=== PATIENT | female | born 1940 | race Caucasian/White ===

== ENCOUNTER 2025-11-07 11:09 | Inpatient (IN) | payer MEDICARE, SELFPAY ==
[2025-11-07] VITALS (57 sets, daily range): BP systolic 76–159; BP diastolic 52–111; PULSE 62–900; RESP 14–38; TEMP 36.2–36.6; O2SAT 86–95; BMI 19.7
--- NOTE | 2025-11-07 12:53 | ED_ITS ---
HPI - Fall General Date Seen: 11/07/25 Chief Complaint: Fall/Minor Trauma Stated Complaint: Fall Time Seen by Provider: 11/07/25 12:53 Source: patient and RN notes reviewed Mode of arrival: ambulatory Limitations: no limitations History of Present Illness HPI Narrative: Lakhwinder is a very pleasant 85-year-old female living in senior housing here in [place] with a history of difficulty with swallowing, tobacco use, atrial fibrillation who comes to the emergency room for evaluation regarding inability to eat and very dark urine. Patient notes that whenever she stops smoking she has a hard time eating. She states that liquids go down okay but something like noodles spaghetti or meatballs the food slides back up. She has not had endoscopy and does not want 1. No diarrhea or constipation. She has experienced approximately a 30 lb weight loss in the past year. In the past she was giving something to ?coat the esophagus? and this did help quite a bit. She notes that she got something for ulcers but that did not help. I do not have access to those records. Lakhwinder also presents with some difficulty breathing that has been ongoing since last Friday and has been persisting over the last 5 days. She describes it as a heaviness. She denies any cold-like symptoms on day 1. She notes that it is somewhat hard to breathe. This happened to her a few months ago and she said that oxygen did help. She has not been coughing nor has she had a fever. She denies urinary symptoms but notes that her urine has been somewhat dark. Also today when patient got out of the car when she was dropped off by her daughter she fell onto her knees outside. She did not fall and hit her head her ribcage or sustain any other injury. Mainly her right knee hurts. Nursing staff did help her up and into a wheelchair. She was able to bear weight. Patient's daughter is present with her. She states that she lives in [place] and that she just moved her mom [email or web address]. She does think her mom needs assisted living at this point. Past medical history: AFib currently on Coumadin Tobacco use GERD Related Data Home Medications ?Medication ?Instructions ?Recorded ?Confirmed cholecalciferol (vitamin D3) 50 50 mcg PO DAILY 11/07/25 mcg (2,000 unit) capsule cyanocobalamin (vitamin B-12) 1,000 mcg PO DAILY 11/0711/07/25 1,000 mcg tablet ezetimibe 10 mg tablet 10 mg PO DAILY 11/07/2507/25 hydrochlorothiazide 25 mg tablet 25 mg PO DAILY PRN 11/07/25 metoprolol succinate 100 mg 100 mg PO DAILY 11/07/25 1 01/08/25 tablet,extended release 24 hr (Toprol XL) omeprazole 20 mg capsule,delayed 20 mg PO DAILY 11/07/25 release warfarin 1 mg tablet 1 mg PO QPM 11/07/25 5 Allergies Allergy/AdvReac Type Severity Reaction Status Date / Time No Known Drug Allergies Allergy Verified 11/07/25 11:59 Review of Systems Status of ROS: Reports: 10 or more systems reviewed and unremarkable except as noted in History and below Const: Reports: fatigue; Denies: fever or chills Eyes: Denies: change in vision or eye discharge ENMT: Denies: throat pain, neck pain, throat swelling or nasal congestion Cardio: Reports: chest pain, palpitations, swelling of feet/ankles and shortness of breath with exertion; Denies: lightheadedness Resp: Reports: shortness of breath; Denies: cough GI: Reports: vomiting; Denies: abdominal pain, nausea, diarrhea or constipation : Denies: painful urination or urinary frequency Musculo: Reports: joint pain (Knees ); Denies: neck pain Integ/Breast: Denies: rash Neuro: Denies: headache Endo: Reports: fatigue Allergy/Immuno: Denies: throat swelling [facility] Medical History (Updated 11/08/25 @ 08:48 by Eugenia Earl MD) Moderate protein-calorie malnutrition ?E44.0 - Moderate protein-calorie malnutrition (ICD-10) Hyperlipidemia ?E78.5 - Hyperlipidemia, unspecified (ICD-10) GERD (gastroesophageal reflux disease) ?K21.9 - Gastro-esophageal reflux disease without esophagitis (ICD-10) Dysphagia ?R13.10 - Dysphagia, unspecified (ICD-10) Social History What is your current living situation?: I presently have a place to live Problems where you live: no known problems Problems where you live details: NA In the past 12 months, utilities in danger of being shut off: no In past 12 months, lack of transportation kept you from medical appts, meetings, work, or getting things needed for daily living: no In the past 12 mos, have been you worried that your food would run out before you had money to buy more?: never true In the past 12 mos, the food you bought just didn't last and you didn't have money to buy more?: never true Highest level of school completed/degree received: high school graduate Smoking Status: Former smoker Do you use any of these nicotine containing products: None Second hand tobacco smoke exposure: Yes How often do you have a drink containing alcohol: monthly or less Alcohol type: beer How many standard drinks containing alcohol do you have on a typical day: 1 or 2 How often do you have six or more drinks on one occasion: Never AUDIT-C Alcohol total score: 1 Non-prescribed substance use: denies use Caffeine: Yes (coffee) How often does anyone, including family, friends and others, physically hurt you : never How often does anyone, including family, friends and others, insult or talk down to you: never How often does anyone, including family, friends and others, threaten you with harm: never How often does anyone, including family, friends and others, scream or curse at you: never service: No Exam Narrative: Exam Narrative: Alert and oriented. Anxious. External ears eyes nose clear. Face symmetrical. Head is atraumatic normocephalic. Neck is supple. No midline cervical tenderness. Heart with an irregularly irregular rhythm and tachycardic rate. Lungs with decreased breath sounds especially in the lower lung bases but left greater than right. Abdomen is soft nontender. Pelvis stable. Lower extremities with edema. Left calf is definitely larger than the right. No calf tenderness however. Nails are yellow and long. Do not note any cellulitis. Palpation over the knees without significant tenderness. There are some light bruising rushing on the right patella. No pain over the tibial plateau. Const: Vital Signs, click to edit/add: Vital Signs - 24 hr 11/07/25 11:44 11/07/25 13:40 11/07/25 13:41 Temperature 97.9 F Pulse Rate Pulse Rate [Left P ulse Oximeter] 112 H Respiratory Rate 18 26 H 23 Blood Pressure 126/86 Blood Pressure [Le ft Upper Arm] 134/85 Pulse Oximetry 94 Oxygen Delivery Me thod Room Air 11/07/25 13:45 11/07/25 14:00 11/07/25 14:15 Temperature Pulse Rate 130 H 111 H Pulse Rate [Left P ulse Oximeter] Respiratory Rate 23 19 19 Blood Pressure Blood Pressure [Le ft Upper Arm] Pulse Oximetry 92 95 Oxygen Delivery Ny thod 11/07/25 15:16 11/07/25 15:30 11/07/25 15:45 Temperature Pulse Rate 96 Pulse Rate [Left P ulse Oximeter] Respiratory Rate 17 22 38 H Blood Pressure Blood Pressure [Le ft Upper Arm] Pulse Oximetry Oxygen Delivery Ny thod 11/07/25 16:07 11/07/25 16:09 11/07/25 16:31 Temperature Pulse Rate Pulse Rate [Left P ulse Oximeter] Respiratory Rate 23 17 14 Blood Pressure 129/83 Blood Pressure [Le ft Upper Arm] Pulse Oximetry Oxygen Delivery Ny thod 11/07/25 16:45 11/07/25 16:57 11/07/25 17:00 Temperature Pulse Rate Pulse Rate [Left P ulse Oximeter] Respiratory Rate 22 25 H 27 H Blood Pressure 159/92 H Blood Pressure [Le ft Upper Arm] Pulse Oximetry [facility] 11/07/25 17:02 Temperature Pulse Rate Pulse Rate [Left P ulse Oximeter] Respiratory Rate 26 H Blood Pressure 140/99 H Blood Pressure [Le ft Upper Arm] Pulse Oximetry [facility] Documenting provider has reviewed patient's vital signs: yes Course Course ED Course: Differential diagnosis includes but is not limited to pneumonia, UTI, AFib, esophageal stricture. Patient has multiple complaints at this time and then when she arrive she fell on her knees. I do not sense that there is a significant fracture but will obtain x-rays of both knees. She did not hit her head her ribs are sustain any other injury. Nursing staff were on site to help her into a wheelchair in she was able to get up with assistance. Will check a CBC, comprehensive, CRP, INR, urinalysis as well as EKG and chest x-ray. Will check troponin high sensitivity. Patient will have IV started. Reevaluation(s) Reevaluation #1: Patient doing well. No requirement for oxygen. She really did want to eat and so we did have her order some soup. Initial troponin min barely elevated with a high sensitivity at 13.5. She has not have any active chest pain at this time. Will recheck in 2 hours time. EKG of course shows atrial fibrillation with RVR. I occasional PVC. I do not note any of significant ST or T-wave changes. Do not feel that she is septic this time or that her AFib is physiologic and therefore do feel that we should do some Cardizem 10 mg IV to slow her heart rate down. Reevaluation #2: Initial dose of Cardizem was able to bring heart rate down between 90-115. Will give her a 2nd dose at this time followed by a drip. 2nd troponin is 11 and therefore we will rule out acute coronary syndrome at this time. Vital Signs Vital signs: Initial Vital Signs Temperature 97.9 F 11/07/25 11:44 Temperature Source Temporal Artery Scan 11/07/25 11:44 Pulse Rate 112 H 11/07/25 11:44 Pulse Rhythm Irregular 11/07/25 11:44 Respiratory Rate 18 11/07/25 11:44 Blood Pressure 134/85 11/07/25 11:44 Blood Pressure Mean 101 11/07/25 11:44 Blood Pressure Position Sitting 11/07/25 11:44 Pulse Oximetry 94 11/07/25 11:44 Oxygen Delivery Method Room Air 11/07/25 11:44 Vital Signs Temperature 97.9 F 11/07/25 11:44 Pulse Rate 112 H 11/07/25 11:44 Respiratory Rate 18 11/07/25 11:44 Blood Pressure 134/85 11/07/25 11:44 Pulse Oximetry 94 11/07/25 11:44 Oxygen Delivery Method Room Air 11/07/25 11:44 Temperature 97.6 F 11/08/25 06:00 Pulse Rate 133 H 11/08/25 07:30 Respiratory Rate 20 11/08/25 06:00 Blood Pressure 133/80 11/08/25 07:30 Pulse Oximetry 91 11/08/25 06:00 Oxygen Delivery Method Nasal Cannula 11/08/25 06:00 Oxygen Flow Rate 1 11/08/25 06:00 Medications Administered Medications: Generic Name Dose Route Start Last Admin Trade Name Freq PRN Reason Stop Dose Admin Enoxaparin Sodium 55 mg 12/08/25 21:00 11/07/25 21:46 Enoxaparin 60 Mg/0.6 Ml Inj SUBCUT Not Given Q12H SHAMA Diltiazem HCl 125 mg/ Sodium 125 mls @ 5 mls/hr 11/07/25 16:20 11/08/25 08:06 Chloride IVPB 10 mg/hr CONT SHAMA 10 mls/hr Protocol Titration 5 MG/HR Azithromycin 500 mg/ Sodium 255 mls @ 255 mls/hr 11/07/25 18:00 11/07/25 23:52 Chloride IVPB Infused Q24H SHAMA Infusion Sodium Chloride 1,000 mls @ 35 mls/hr 11/08/25 07:20 11/08/25 07:38 0.9 % Sodium Chloride 1000 Ml IV 35 mls/hr .Q24H SHAMA Administration Nystatin 500,000 unit 11/07/25 21:00 11/07/25 21:18 Nystatin 500,000 Unit/5 Ml PO Not Given QID SHAMA Pantoprazole Sodium 40 mg 11/07/25 21:00 11/07/25 21:17 Pantoprazole Sodium 40 Mg Inj IVP 40 mg DAILY SHAMA Administration Sodium Chloride 5 ml 11/07/25 21:00 11/07/25 21:17 Sodium Chloride 0.9 % (Flush) 10 Ml Syringe IVF 5 ml BID SHAMA Administration Warfarin Sodium 1 mg 11/07/25 18:00 11/07/25 18:54 Warfarin 2 Mg Tablet PO 1 mg On Hold: 11/07/25 18:56 QPM SHAMA Administration Discontinued Medications Generic Name Dose Route Start Last Admin Trade Name Freq PRN Reason Stop Dose Admin Diltiazem HCl 10 mg 11/07/25 14:34 11/07/25 15:41 Diltiazem 5 Mg/Ml Inj IVP 11/07/25 14:35 10 mg ONCE ONE Administration Diltiazem HCl 10 mg 11/07/25 16:18 11/07/25 16:53 Diltiazem 5 Mg/Ml Inj IVP 11/07/25 16:19 10 mg ONCE ONE Administration Furosemide 40 mg 11/07/25 18:06 11/07/25 18:52 Furosemide 10 Mg/Ml Inj IVP 11/07/25 18:07 40 mg ONCE ONE Administration Ceftriaxone Sodium 1 gm/ 100 mls @ 200 mls/hr 11/07/25 14:34 11/07/25 16:12 Sodium Chloride IVPB 11/07/25 14:35 Infused ONCE ONE Infusion Magnesium Sulfate 2 gm in 50 mls @ 25 mls/hr 11/07/25 18:09 11/07/25 23:53 Magnesium Iv IVPB 11/07/25 20:08 Infused ONCE ONE Infusion Sodium Chloride 1,000 mls @ 100 mls/hr 11/07/25 18:50 11/07/25 23:52 0.9 % Sodium Chloride 1000 Ml IV Infused .Q10H SHAMA Infusion Sodium Chloride 250 mls @ 250 mls/hr 11/07/25 20:39 11/07/25 23:52 0.9 % Sodium Chloride 250 Ml IV 11/07/25 21:38 Infused .Q1H ONE Infusion Ondansetron HCl 4 mg 11/07/25 17:33 11/07/25 20:30 Ondansetron 2 Mg/Ml Inj IVP 4 mg Q4H PRN Administration Nausea Pantoprazole Sodium 40 mg 11/07/25 19:10 11/07/25 23:53 Pantoprazole Sodium 40 Mg Inj IVP Not Given DAILY SHAMA MDM - Fall MDM Narrative Medical decision making narrative: 1. Pneumonia-right sided. O2 sats have remained in the mid 90s. I do suspect patient has underlying emphysema. Have not seen any records from her previous hospitals. No O2 needs at this time. Rocephin 1 g IV is given. No evidence of sepsis . Note no traumatic injury of the chest upon the fall outside today. 2. AFib with RVR-rate control usually with metoprolol 100 b.i.d.. Certainly this could be secondary to pneumonia and recent fall. Cardizem 10 mg IV x1. This bridge bring heart rate down from 1 30s to 90-115. Giving 2nd dose in starting a drip at this time. ProBNP elevated, I suspect component of this is secondary to atrial fibrillation. 3. Elevated troponin-initial troponin 13.5 (normal up to 13 in women:. Second troponin recheck in 2 hours 11. Therefore no evidence of acute coronary syndrome. EKG with nonspecific changes noted. 4. Lower extremity edema with a symmetrical calves-petrous on of the lower extremities without any evidence of DVT. In addition patient is anticoagulated with an INR of 2.8 5. Weakness -likely multifactorial with recent weight loss/difficulty eating because of dysphagia, pneumonia as well as AFib. Likely would benefit from OT evaluation of ADLs. Patient currently a resident at [facility] or [facility]. I do think she would benefit from assisted living as her daughter who is here quite a few times a week lives in [place]. 6. Dysphagia-will need to get records from previous institutions. Patient notes that she is unable to swallow when she stops smoking. Likely will need endoscopy to further evaluate. No vomiting here in the ED. able to take fluids without difficulty. 7. Disposition- admit inpatient under the care of YANETH Emanuel, hospitalist. Additional diagnosis: Fall-patient fell onto her knees. She did not strike her head ribcage for her back. X-rays are reassuring with no evidence of fracture. She has a small amount of bruising on her right knee. Lower extremity Doppler negative for DVT. Medical Records Medical records narrative: Attempting to obtain Lab Data Attestation: I reviewed the patient's lab results. Labs: Lab Results 11/07/25 11/07/25 11/07/25 Range/Units 13:11 13:14 13:57 WBC 9.69 (4.50-11.00) K/uL RBC 4.54 (4.00-5.20) m/uL Hgb 14.3 (12.0-16.0) gm/dL Hct 44.0 (33.0-51.0) % MCV 97 (80-100) fL MCH 32 (26-34) pg MCHC 33 (32-36) gm/dL RDW Coeff of Camilla 16.7 H (11.5-15.5) % Plt Count 268 (140-440) K/uL Neut % (Auto) 82.9 H (42.0-72.0) % Lymph % (Auto) 7.5 L (20-44) % [place] % (Auto) 9.0 (0.0-11.0) % Eos % (Auto) 0.2 (0.0-7.0) % Baso % (Auto) 0.1 (0.0-3.0) % Neut # (Auto) 8.00 H (1.7-7.0) K/uL Lymph # (Auto) 0.70 L (0.90-2.90) K/uL [place] # (Auto) 0.90 (0.00-0.90) K/UL Eos # (Auto) 0.02 (0.00-0.50) K/uL Baso # (Auto) 0.01 (0.00-0.30) K/uL Abs Immat Gran (auto) 0.03 (0.00-0.30) K/uL Imm/Tot Granulo (auto) 0.3 % INR 2.82 H (0.91-1.10) VBG pH 7.432 H (7.32-7.43) VBG pCO2 50 (40-50) mmHG VBG pO2 < 30.1 (25-47) mmHG VBG HCO3 34 H (21-28) mmol/L Sodium 143 (135-149) mmol/L Potassium 3.6 (3.6-5.1) mmol/L Chloride 97 (96-114) mmol/L Carbon Dioxide 33 H (20-32) mmol/L Anion Gap 13 (7-15) mEq/L BUN 15 (7-30) mg/dL Creatinine 0.9 (0.5-1.5) mg/dL Estimated GFR 63 ml/min Glucose 124 H (60-115) mg/dL Lactate 1.6 (0.5-1.9) mmol/L Calcium 8.5 (8.4-10.6) mg/dL Magnesium 1.6 (1.5-2.6) mg/dL Total Bilirubin 3.6 H (0.1-1.5) mg/dL AST 28 (12-35) U/L ALT 15 (4-35) U/L Alkaline Phosphatase 65 (40-150) U/L POC Troponin I High Sensi 13.5 H* (2.9-13.0) pg/mL C-Reactive Protein 3.8 H (0.5-1.0) mg/dL NT-Pro-B Natriuret Pep 69780 H (See Note) pg/mL Total Protein 7.0 (6.0-8.3) g/dL Albumin 4.0 (3.3-5.0) g/dL Procalcitonin 0.05 (<0.50) ng/mL Urine Color [place] A (Yellow) Urine Appearance Turbid A (Clear) Urine pH 5.5 (5.0-8.5) Ur Specific [place] >= 1.030 (1.000-1.030) Urine Protein 3+ A (Negative) Urine Glucose (UA) Negative (Negative) Urine Ketones Negative (Negative) Urine Blood 1+ A (Negative) Urine Nitrite Negative (Negative) Urine Bilirubin 2+ A (Negative) Urine Urobilinogen 1.0 (0.2-1.0) Ur Leukocyte Esterase Negative (Negative) Urine RBC 0-2 (0-2) Urine WBC 5-10 A (0-5) Ur Squamous Epith Cells Moderate A (None-Few) Calcium Oxalate Crystal Moderate A (None) Urine Bacteria Few A (None) Fine Granular Casts Moderate A (None) Lab Acknowledgement Test Added 11/07/25 11/07/25 Range/Units 15:15 16:44 WBC (4.50-11.00) K/uL RBC (4.00-5.20) m/uL Hgb (12.0-16.0) gm/dL Hct (33.0-51.0) % MCV (80-100) fL MCH (26-34) pg MCHC (32-36) gm/dL RDW Coeff of Camilla (11.5-15.5) % Plt Count (140-440) K/uL Neut % (Auto) (42.0-72.0) % Lymph % (Auto) (20-44) % [place] % (Auto) (0.0-11.0) % Eos % (Auto) (0.0-7.0) % Baso % (Auto) (0.0-3.0) % Neut # (Auto) (1.7-7.0) K/uL Lymph # (Auto) (0.90-2.90) K/uL [place] # (Auto) (0.00-0.90) K/UL Eos # (Auto) (0.00-0.50) K/uL Baso # (Auto) (0.00-0.30) K/uL Abs Immat Gran (auto) (0.00-0.30) K/uL Imm/Tot Granulo (auto) % INR (0.91-1.10) VBG pH (7.32-7.43) VBG pCO2 (40-50) mmHG VBG pO2 (25-47) mmHG VBG HCO3 (21-28) mmol/L Sodium (135-149) mmol/L Potassium (3.6-5.1) mmol/L Chloride (96-114) mmol/L Carbon Dioxide (20-32) mmol/L Anion Gap (7-15) mEq/L BUN (7-30) mg/dL Creatinine (0.5-1.5) mg/dL Estimated GFR ml/min Glucose (60-115) mg/dL Lactate (0.5-1.9) mmol/L Calcium (8.4-10.6) mg/dL Magnesium (1.5-2.6) mg/dL Total Bilirubin (0.1-1.5) mg/dL AST (12-35) U/L ALT (4-35) U/L Alkaline Phosphatase (40-150) U/L POC Troponin I High Sensi 11.6 (2.9-13.0) pg/mL C-Reactive Protein (0.5-1.0) mg/dL NT-Pro-B Natriuret Pep (See Note) pg/mL Total Protein (6.0-8.3) g/dL Albumin (3.3-5.0) g/dL Procalcitonin (<0.50) ng/mL Urine Color (Yellow) Urine Appearance (Clear) Urine pH (5.0-8.5) Ur Specific [place] (1.000-1.030) Urine Protein (Negative) Urine Glucose (UA) (Negative) Urine Ketones (Negative) Urine Blood (Negative) Urine Nitrite (Negative) Urine Bilirubin (Negative) Urine Urobilinogen (0.2-1.0) Ur Leukocyte Esterase (Negative) Urine RBC (0-2) Urine WBC (0-5) Ur Squamous Epith Cells (None-Few) Calcium Oxalate Crystal (None) Urine Bacteria (None) Fine Granular Casts (None) Lab Acknowledgement Test Added Imaging Data Chest x-ray: Attestation: I have reviewed the pertinent imaging results. My impression: Right lower lobe pneumonia by my read. Radiologist's impression: TUBES AND LINES: None. HEART AND MEDIASTINUM: Enlarged heart. LUNGS AND PLEURAL SPACES: Dense consolidation at the right base and right effusion. It is unclear whether this is related to the patient`s trauma or predated the patient`s trauma.No pneumothorax. Left lung and left pleural space appear normal OSSEOUS STRUCTURES: Age-appropriate appearance. No acute focal finding. IMPRESSION: 1. Enlarged heart. 2. Dense consolidation at the right base and small right effusion. It is unclear whether the right basilar finding predated the trauma or is a result of the trauma. No pneumothorax 3. The left lung and left pleural space appear normal Knee x-rays: Attestation: I have reviewed the pertinent imaging results. My impression: I do not note any acute fractures. Radiologist's impression: Soft tissue swelling over the lateral aspect of the right knee. No joint effusion or fracture. 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 Otherwise unremarkable. IMPRESSION: 1. Soft tissue swelling over the lateral aspect of the right knee. No other acute abnormality evident. 2. 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 Venous US: Attestation: I have reviewed the pertinent imaging results. Radiologist's impression: Deep veins: The bilateral common femoral, superficial femoral, deep femoral, popliteal, and posterior tibial veins are fully compressible and patent. Superficial veins: Greater saphenous vein is fully compressible. No popliteal cyst. Other: There is subcutaneous edema in the soft tissues of the bilateral lower extremities below the knee. IMPRESSION: : 1. No evidence of DVT within the visualized veins of the bilateral lower extremities. 2. There is subcutaneous edema in the soft tissues of the bilateral lower extremities below the knee. ECG Data Attestation: I personally reviewed and interpreted this ECG as follows: ECG interpretation date: 11/07/25 Prior ECG tracings: not available for review Interpretation: Atrial fibrillation with RVR at a rate of 134. Questionable old septal infarct. Occasional PVC. Otherwise no acute ST or T-wave changes. Critical Care Time Critical Care Time Critical Care Time: Yes Attestation: The patient required my highest level preparedness to intervene emergently and I personally spent this critical care time directly and personally managing the patient. This critical care time included: Obtaining a history; Examining the patient; Pulse oximetry; Ordering and reviewing of studies; Arranging urgent treatment with development of a management plan; Evaluation of patients response to treatment; Frequent reassessment discussions with other providers. This critical care time was performed to assess and manage the high probability of imminent life-threatening deterioration that could result in multiorgan failure. It was exclusive of separate billable procedures and treating other patients and teaching time. Total Critical Care Time in Minutes: 60 Discharge Plan Discharge Clinical Impression: Atrial fibrillation with rapid ventricular response, Pneumonia, Atypical chest pain, Elevated brain natriuretic peptide (BNP) level, Bilateral edema of lower extremity, Weakness Patient Disposition: Admitted As Inpatient Condition: Improved Procedures ABG Interpretation ABG Results: 11/07/25 13:57 VBG pH 7.432 H VBG pCO2 50 VBG pO2 < 30.1 VBG HCO3 34 H
--- NOTE | 2025-11-07 13:11 | CRLHL7_ITS ---
For Patients: As a result of the Century Cures Act, medical imaging exams and procedure reports are released immediately into your electronic medical record. You may view this report before your referring provider. If you have questions, please contact your health care provider. INDICATION: Injury COMPARISON: None TECHNIQUE: Single view study FINDINGS: TUBES AND LINES: None. HEART AND MEDIASTINUM: Enlarged heart. LUNGS AND PLEURAL SPACES: Dense consolidation at the right base and right effusion. It is unclear whether this is related to the patient`s trauma or predated the patient`s trauma.No pneumothorax. Left lung and left pleural space appear normal OSSEOUS STRUCTURES: Age-appropriate appearance. No acute focal finding. IMPRESSION: 1. Enlarged heart. 2. Dense consolidation at the right base and small right effusion. It is unclear whether the right basilar finding predated the trauma or is a result of the trauma. No pneumothorax 3. The left lung and left pleural space appear normal Dictated by Mehul Adair MD @ 11/07/2025 2:16:59 PM (Electronically Signed)
--- NOTE | 2025-11-07 13:13 | US_ITS ---
Patient: JERSEY WEST Facility:?[facility] Patient ID:?[id number] Site Patient ID:?[id number]. Site :?[id number] Study:?US-Extremity Bilateral LEV-11/07/2025 3:12:21 PM Ordering Physician:?Nabeel Brooks Final Report: INDICATION: Lower extremity edema, left greater than right TECHNIQUE: Ultrasound venous duplex bilateral lower extremity. Compression venous exam was performed using travis-scale, color Doppler, and spectral Doppler analysis. COMPARISON: None. FINDINGS: Deep veins: The bilateral common femoral, superficial femoral, deep femoral, popliteal, and posterior tibial veins are fully compressible and patent. Superficial veins: Greater saphenous vein is fully compressible. No popliteal cyst. Other: There is subcutaneous edema in the soft tissues of the bilateral lower extremities below the knee. IMPRESSION: : 1. No evidence of DVT within the visualized veins of the bilateral lower extremities. 2. There is subcutaneous edema in the soft tissues of the bilateral lower extremities below the knee. Dictated by Erick Ochoa MD @ 11/07/2025 3:15:30 PM Signed by:?Erick Ochoa MD @11/07/2025 3:15:30 PM (Electronic Signature)
--- NOTE | 2025-11-07 13:14 | CRLHL7_ITS ---
For Patients: As a result of the Century Cures Act, medical imaging exams and procedure reports are released immediately into your electronic medical record. You may view this report before your referring provider. If you have questions, please contact your health care provider. INDICATION: Right knee pain post fall TECHNIQUE: Portable AP image of both knees as well as cross-table lateral views of the right knee COMPARISON: None FINDINGS: Soft tissue swelling over the lateral aspect of the right knee. No joint effusion or fracture. 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 Otherwise unremarkable. IMPRESSION: 1. Soft tissue swelling over the lateral aspect of the right knee. No other acute abnormality evident. 2. 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 Dictated by Jean Maurer MD @ 11/07/2025 2:11:38 PM (Electronically Signed)
[2025-11-07 14:03] LABS: Lactate* 1.6 mmol/L (0.5-1.9)
[2025-11-07 14:06] LABS: Hematocrit* 44.0 % (33.0-51.0); Hemoglobin* 14.3 gm/dL (12.0-16.0); Immature Granulocytes Abs Auto 0.03 K/uL (0.00-0.30); Immature Granulocytes Pct Auto 0.3 %; Mean Corpuscular HGB Conc 33 gm/dL (32-36); Mean Corpuscular Hemoglobin 32 pg (26-34); Mean Corpuscular Volume 97 fL (80-100); RDW Coefficient of Variation % 16.7 % (11.5-15.5); Red Blood Count* 4.54 m/uL (4.00-5.20); White Blood Count* 9.69 K/uL (4.50-11.00)
[2025-11-07 14:07] LABS: Lymphocytes Absolute Auto 0.70 K/uL (0.90-2.90)
[2025-11-07 14:08] LABS: Slide Review Reflex No
[2025-11-07 14:15] LABS: Albumin* 4.0 g/dL (3.3-5.0); Chloride* 97 mmol/L (96-114); Potassium* 3.6 mmol/L (3.6-5.1); Sodium* 143 mmol/L (135-149)
[2025-11-07 14:17] LABS: INR 2.82 (0.91-1.10); Prothrombin Time 30.9 Seconds
[2025-11-07 14:18] LABS: Alanine Aminotransferase* 15 U/L (4-35); Alkaline Phosphatase* 65 U/L (40-150); Anion Gap 13 mEq/L (7-15); Aspartate Amino Transferase* 28 U/L (12-35); Bilirubin Total* 3.6 mg/dL (0.1-1.5); Blood Urea Nitrogen* 15 mg/dL (7-30); Carbon Dioxide* 33 mmol/L (20-32); Creatinine* 0.9 mg/dL (0.5-1.5); Estimated Glomerular Filt Rate 63 ml/min
[2025-11-07 14:19] LABS: Calcium* 8.5 mg/dL (8.4-10.6); Glucose* 124 mg/dL (60-115); Total Protein* 7.0 g/dL (6.0-8.3)
[2025-11-07 14:31] LABS: NT Pro B Type NatriureticPept* 10400 pg/mL (See Note)
[2025-11-07] MEDS: dilTIAZem 5 MG/ML inj 10 MG IVP ×2 (15:41→16:53)
[2025-11-07] MEDS: cefTRIAXone 1 GM in 0.9 % SODIUM CHLORIDE Mini-bag 100 ML IVPB (15:42)
[2025-11-07 16:16] LABS: Appearance Urine Turbid (Clear)
[2025-11-07 16:46] LABS: PCO2 VBG 50 mmHG (40-50); pH VBG 7.432 (7.32-7.43)
[2025-11-07 16:47] LABS: HCO3 VBG 34 mmol/L (21-28); PO2 VBG < 30.1 mmHG (25-47)
[2025-11-07] MEDS: dilTIAZem HCL 125 MG in 0.9 % SODIUM CHLORIDE 100 ml 100 ML IVPB (16:49)
--- NOTE | 2025-11-07 18:10 | PM.IMHP1 ---
Assessment and Plan Assessment and plan (1) Pneumonia: Problem comment: -suspect aspiration pneumonia in setting of acute worsened dysphagia -CXR shows dense consolidation at the right base. Consider further imaging if new or worsening symptoms -continue ceftriaxone, add azithromycin -no hypoxia, VBG pH 7.432, pCO2 50, PO2 < 30, HC03 34, CRP 3.8, procalcitonin 0.05 -incentive spirometry, aerobika Status: Acute (2) Dysphagia: Problem comment: -acute on chronic, intermittent worsening episodes -reports no previous workup -NPO, gentle IVF while diuresing. Failed bedside swallow eval. Hold oral meds -[employer] for evaluation Status: Acute (3) Atrial fibrillation with rapid ventricular response: Problem comment: -home meds include metoprolol 100 mg p.o. daily, warfarin (holding for dysphagia) -INR 2.8 -continue diltiazem drip -enoxaparin as currently NPO, resuming warfarin as soon as able Status: Acute (4) Bilateral edema of lower extremity: Problem comment: -acute on chronic, acutely worsened -HCTZ prn, reports not helping past few days -BNP > 10,000 -bilateral lower extremity Doppler ultrasound negative for DVT -IV Lasix ordered -ECHO ordered Status: Acute (5) Weakness: Problem comment: -generalized, unknown if acute on chronic -PT/OT consults -sr. social media & mobile manager for discharge planning/placement needs Status: Acute (6) Fall: Problem comment: -reported outside of ED -right knee x-ray without acute injury -monitor for new or worsening symptoms -PT/OT Status: Acute (7) Thrush: Problem comment: -possible thrush, soft palate -nystatin swish and spit Status: Acute (8) Hyperlipidemia: Problem comment: -holding ezetimibe (dysphagia) Status: Acute Plan Continue diltiazem drip for AFib RVR. Continue IV antibiotics, gentle IVF while NPO, while also diuresing. Swallow study 11/08 Total Time Spent Total Time Spent: Today I spent 90 minutes seeing the patient, reviewing Expanse and EPIC notes/diagnostics, discussing the care plan with our care time that includes social work, PT/OT, pharmacy, RT, nursing home and documenting my impressions and plan in the medical record. Acuity is characterized as high and reflected in: AFib with RVR requiring IV diltiazem drip, cardiac monitoring, diuresis in setting of peripheral edema This patient will require hospital services as outlined in the assessment and plan in order to stabilize and be safely discharged to a lower level of care. Because of the risk and acuity as described above, this patient cannot be managed at a lower level of care. Hospitalist- H&P: HPI History of Present Illness Date Seen: 11/07/25 Chief complaint: Fall Narrative: Lakhwinder Oscar is a 85 year old female past medical history significant for atrial fibrillation on beta-quinton and chronic anticoagulation, GERD, hyperlipidemia is admitted to critical care from the ED for further management atrial fibrillation with RVR and dysphagia. Patient is seen with nurse at bedside. Daughter is not present. Reports dysphagia since quitting smoking 4 years ago. Has slowly been worsening over the years, more so over the last week again. Intermittent episodes similar to this in the past where she admits choking on foods, which she has done in the past few days. She tells me that eating meats is intolerable. She otherwise slowly chews fruits and vegetables. Reports no vomiting. She denies ever having had a swallow study in the past. Denies having an EGD in the past and tells me she prefers not to have one if she needs one either. When asked if she is having any chest pain or heaviness she tells me no. She is able to tell when her AFib has worsened. More short of breath. Overall, complains of generalized weakness. Denies ear pain, sore throat, nasal congestion. She denies a new or worsening cough. Has a chronic phlegmy cough otherwise. Denies recent fevers. Denies abdominal pain, vomiting, diarrhea. Has a normal bowel movement daily. Denies headache or dizziness. Patient fell outside the hospital on arrival to the ED. Had some right knee pain, x-ray shows no acute injury. No other reported pains currently. Reports taking her medications daily as prescribed. Has not missed a dose or choked on a dose. Patient recently moved from [facility] and has previously signed an [facility] to get her records here. She currently resides at [facility]. Her daughter lives in [place] and helps her out throughout the week. Quit smoking 4 years ago. Occasional alcohol use. Requests be a full code. Review of Systems Narrative: REVIEW OF SYSTEMS: Complete review of systems performed and negative unless otherwise stated in HPI or below. Medical Decision Making Medical Decision Making Code Status: Full code [facility] Medical History (Updated 11/07/25 @ 19:06 by Pili Emanuel PA-C) Hyperlipidemia ?E78.5 - Hyperlipidemia, unspecified (ICD-10) GERD (gastroesophageal reflux disease) ?K21.9 - Gastro-esophageal reflux disease without esophagitis (ICD-10) Dysphagia ?R13.10 - Dysphagia, unspecified (ICD-10) Social History What is your current living situation?: I presently have a place to live Problems where you live: no known problems Problems where you live details: NA In the past 12 months, utilities in danger of being shut off: no In past 12 months, lack of transportation kept you from medical appts, meetings, work, or getting things needed for daily living: no In the past 12 mos, have been you worried that your food would run out before you had money to buy more?: never true In the past 12 mos, the food you bought just didn't last and you didn't have money to buy more?: never true Highest level of school completed/degree received: high school graduate Smoking Status: Former smoker Do you use any of these nicotine containing products: None Second hand tobacco smoke exposure: Yes How often do you have a drink containing alcohol: monthly or less Alcohol type: beer How many standard drinks containing alcohol do you have on a typical day: 1 or 2 How often do you have six or more drinks on one occasion: Never AUDIT-C Alcohol total score: 1 Non-prescribed substance use: denies use Caffeine: Yes (coffee) How often does anyone, including family, friends and others, physically hurt you: never How often does anyone, including family, friends and others, insult or talk down to you: never How often does anyone, including family, friends and others, threaten you with harm: never How often does anyone, including family, friends and others, scream or curse at you: never service: No Meds Home Medications and Allergies Home Medications ?Medication ?Instructions ?Recorded ?Confirmed ?Type cholecalciferol (vitamin D3) 50 50 mcg PO DAILY 11/07/25 11/07/25 History mcg (2,000 unit) capsule cyanocobalamin (vitamin B-12) 1,000 mcg PO DAILY 11/07/25 11/07/25 History 1,000 mcg tablet ezetimibe 10 mg tablet 10 mg PO DAILY 11/07/25 11/07/25 History hydrochlorothiazide 25 mg tablet 25 mg PO DAILY PRN 11/07/25 11/07/25 History metoprolol succinate 100 mg 100 mg PO DAILY 11/07/25 11/07/25 History tablet,extended release 24 hr (Toprol XL) omeprazole 20 mg capsule,delayed 20 mg PO DAILY 11/07/25 11/07/25 History release warfarin 1 mg tablet 1 mg PO QPM 11/07/25 11/07/25 History Allergies Allergy/AdvReac Type Severity Reaction Status Date / Time No Known Drug Allergies Allergy Verified 11/07/25 11:59 Exam Narrative: Exam Narrative: PHYSICAL EXAM General: Appears thin, frail, conversant, NAD HEENT: Normocephalic, atraumatic, sclera white, EOMI, soft palate mildly erythematous with white patches Cardiovascular: IRRR. Bilateral+3 pitting edema Pulmonary: Diminished breath sounds throughout, no expiratory wheezes, mild dyspnea on room air Abdominal: Soft, nondistended, NTTP Neurological: Alert, answering questions appropriately, mildly anxious, cranial nerves intact, no focal findings Extremities: Bilateral pitting edema lower extremities, feet to shins, mild erythema. Neurovascularly intact Skin: Warm, dry. Const: Vital Signs, click to edit/add: Vital Signs - 24 hr 11/07/25 11:44 11/07/25 13:40 11/07/25 13:41 Temperature 97.9 F Pulse Rate Pulse Rate [Left P ulse Oximeter] 112 H Respiratory Rate 18 26 H 23 Blood Pressure 126/86 Blood Pressure [Le ft Upper Arm] 134/85 Pulse Oximetry 94 Oxygen Delivery Me thod Room Air 11/07/25 13:45 11/07/25 14:00 11/07/25 14:15 Temperature Pulse Rate 130 H 111 H Pulse Rate [Left P ulse Oximeter] Respiratory Rate 23 19 19 Blood Pressure Blood Pressure [Le ft Upper Arm] Pulse Oximetry 92 95 Oxygen Delivery Me thod 11/07/25 15:16 11/07/25 15:30 11/07/25 15:45 Temperature Pulse Rate 96 Pulse Rate [Left P ulse Oximeter] Respiratory Rate 17 22 38 H Blood Pressure Blood Pressure [Le ft Upper Arm] Pulse Oximetry Oxygen Delivery Dc thod 11/07/25 16:07 11/07/25 16:09 11/07/25 16:31 Temperature Pulse Rate Pulse Rate [Left P ulse Oximeter] Respiratory Rate 23 17 14 Blood Pressure 129/83 Blood Pressure [Le ft Upper Arm] [facility]xim[facility] 16:45 11/07/25 16:57 11/07/25 17:00 Temperature Pulse Rate Pulse Rate [Left P ulse Oximeter] Respiratory Rate 22 25 H 27 H Blood Pressure 159/92 H Blood Pressure [Le ft Upper Arm] Pulse Oximetry [facility]/07/25 17:02 Temperature Pulse Rate Pulse Rate [Left P ulse Oximeter] Respiratory Rate 26 H Blood Pressure 140/99 H Blood Pressure [Le ft Upper Arm] Pulse Oximetry [facility] - H&P: Result Labs Labs: Short CBC 11/07/25 Range/Units 13:57 WBC 9.69 (4.50-11.00) K/uL Hgb 14.3 (12.0-16.0) gm/dL Hct 44.0 (33.0-51.0) % Plt Count 268 (140-440) K/uL BMP 11/07/25 13:57 Sodium 143 Potassium 3.6 Chloride 97 Carbon Dioxide 33 H BUN 15 Creatinine 0.9 Glucose 124 H Calcium 8.5 Liver Function 11/07/25 Range/Units 13:57 Total Bilirubin 3.6 H (0.1-1.5) mg/dL AST 28 (12-35) U/L ALT 15 (4-35) U/L Alkaline Phosphatase 65 (40-150) U/L Albumin 4.0 (3.3-5.0) g/dL Urine 11/07/25 Range/Units 13:11 Urine Color Weld A (Yellow) Urine Appearance Turbid A (Clear) Urine pH 5.5 (5.0-8.5) Ur Specific [place] >= 1.030 (1.000-1.030) Urine Protein 3+ A (Negative) Urine Glucose (UA) Negative (Negative) Imaging Chest x-ray: Attestation: I have reviewed the pertinent imaging results. Radiologist's impression: TUBES AND LINES: None. HEART AND MEDIASTINUM: Enlarged heart. LUNGS AND PLEURAL SPACES: Dense consolidation at the right base and right effusion. It is unclear whether this is related to the patient`s trauma or predated the patient`s trauma.No pneumothorax. Left lung and left pleural space appear normal OSSEOUS STRUCTURES: Age-appropriate appearance. No acute focal finding. IMPRESSION: 1. Enlarged heart. 2. Dense consolidation at the right base and small right effusion. It is unclear whether the right basilar finding predated the trauma or is a result of the trauma. No pneumothorax 3. The left lung and left pleural space appear normal Venous US: Attestation: I have reviewed the pertinent imaging results. Radiologist's impression: Deep veins: The bilateral common femoral, superficial femoral, deep femoral, popliteal, and posterior tibial veins are fully compressible and patent. Superficial veins: Greater saphenous vein is fully compressible. No popliteal cyst. Other: There is subcutaneous edema in the soft tissues of the bilateral lower extremities below the knee. IMPRESSION: : 1. No evidence of DVT within the visualized veins of the bilateral lower extremities. 2. There is subcutaneous edema in the soft tissues of the bilateral lower extremities below the knee. Right knee x-ray: Attestation: I have reviewed the pertinent imaging results. Radiologist's impression: FINDINGS: Soft tissue swelling over the lateral aspect of the right knee. No joint effusion or fracture. 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 Otherwise unremarkable. IMPRESSION: 1. Soft tissue swelling over the lateral aspect of the right knee. No other acute abnormality evident. 2. 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
[2025-11-07 18:12] LABS: Procalcitonin* 0.05 ng/mL (<0.50)
[2025-11-07] MEDS: AZITHROMYCIN 500 MG in 0.9 % SODIUM CHLORIDE 250 ml 250 ML 255 MG IVPB (18:46)
[2025-11-07] MEDS: MAGNESIUM IV 2 GM/50 ML PIGGYBACK IVPB (18:48)
[2025-11-07] MEDS: FUROSEMIDE 10 MG/ML inj 40 MG IVP (18:52)
[2025-11-07] MEDS: WARFARIN 2 MG TABLET 1 MG PO (18:54)
--- NOTE | 2025-11-07 20:05 | PC.NURSE ---
Nursing Care Hours: [id number] Pt this shift calm and talkative. Denies nausea, chest pain, or SOB. VS monitored while on Dilt drip. Cooperative with cares. Pt was verbally upset aeb raising voice and refusing to comply with NPO status while speech swallow study is pending for tomorrow. Pt reports I am hungry, I will get up out of bed and go get food. Nurse performed bedside swallow test with thin liquids and moderately thick liquids and pt coughed with both and had garbled voice afterwards. Same with one small bite of mashed potatoes. Pt then states enough, I am done and was agreeable to NPO until evaluation. Pt states she does not want a scope evaluation however. White patches and swollen tonsils upon assessment, denies throat pain.
[2025-11-07] MEDS: ONDANSETRON 2 MG/ML inj 4 MG IVP (20:30)
[2025-11-07] MEDS: 0.9 % SODIUM CHLORIDE 250 ml 250 ML IV (20:30)
[2025-11-07] MEDS: PANTOPRAZOLE SODIUM 40 MG INJ IVP (21:17)
[2025-11-07] MEDS: SODIUM CHLORIDE 0.9 % (FLUSH) 10 ML SYRINGE 5 ML IVF (21:17)
[2025-11-08] VITALS (71 sets, daily range): BP systolic 58–139; BP diastolic 22–124; PULSE 74–180; RESP 16–24; TEMP 36–36.4; O2SAT 89–98; BMI 19.7
[2025-11-08 00:54] LABS: PCR FLU A Negative PCR FLU A (Negative); PCR FLU B Negative PCR FLU B (Negative); PCR RSV Negative PCR RSV (Negative); SARS PCR* Negative SARS-CoV-2 (Negative)
[2025-11-08 06:26] LABS: HCO3 VBG 35 mmol/L (21-28); PO2 VBG < 30.1 mmHG (25-47); pH VBG 7.370 (7.32-7.43)
[2025-11-08 06:27] LABS: Hematocrit* 42.3 % (33.0-51.0); Hemoglobin* 13.6 gm/dL (12.0-16.0); Mean Corpuscular HGB Conc 32 gm/dL (32-36); Mean Corpuscular Hemoglobin 32 pg (26-34); Mean Corpuscular Volume 98 fL (80-100); Red Blood Count* 4.31 m/uL (4.00-5.20); White Blood Count* 7.55 K/uL (4.50-11.00)
[2025-11-08 06:28] LABS: PCO2 VBG 61 mmHG (40-50)
[2025-11-08 06:29] LABS: Slide Review Reflex No
[2025-11-08 06:44] LABS: Albumin* 3.8 g/dL (3.3-5.0); Chloride* 96 mmol/L (96-114); Potassium* 3.7 mmol/L (3.6-5.1); Sodium* 142 mmol/L (135-149)
[2025-11-08 06:46] LABS: Blood Urea Nitrogen* 14 mg/dL (7-30); Creatinine* 0.8 mg/dL (0.5-1.5); Est. Creatinine Clearance* 36.70; Estimated Glomerular Filt Rate 73 ml/min
[2025-11-08 06:47] LABS: Alanine Aminotransferase* 19 U/L (4-35); Alkaline Phosphatase* 55 U/L (40-150); Anion Gap 13 mEq/L (7-15); Aspartate Amino Transferase* 39 U/L (12-35); Bilirubin Direct* 0.8 mg/dL (0.0-0.5); Bilirubin Total* 2.7 mg/dL (0.1-1.5); Calcium* 7.8 mg/dL (8.4-10.6); Carbon Dioxide* 33 mmol/L (20-32); Glucose* 109 mg/dL (60-115); Total Protein* 6.6 g/dL (6.0-8.3)
[2025-11-08 06:52] LABS: INR 3.45 (0.91-1.10); Prothrombin Time 36.0 Seconds
--- NOTE | 2025-11-08 07:21 | PC.NURSE ---
Pt alert and oriented to self and place with some forgetfulness of time. Afebrile. Pt denies pain, chest pain, and SOB. Around 1999 pt was up to the commode and reported feeling nauseous and light headed, took bp 76/53 stopped diltiazem drip, updated PA Joseluis, orders given to give 250 bolus, pt blood pressures improved, gave PRN Zofran for nausea with relief. Pt was placed back on diltiazem drip around 2219. Pt continues to be on diltiazem drip at 5 mg tolerating well. Pt is up A1 with walker and gait belt voiding, and tolerating an NPO diet.
--- NOTE | 2025-11-08 08:36 | PM.IMPN1 ---
Assessment and Plan Assessment and plan (1) Pneumonia: Problem comment: - suspect aspiration pneumonia in setting of acutely worsened dysphagia - CXR: dense consolidation at the right base - Ceftriaxone and Azithromycin (11/08) - requiring low dose supplemental oxygen, RT referral Status: Acute (2) Atrial fibrillation with rapid ventricular response: Problem comment: - home meds include metoprolol 100mg XR daily, warfarin (holding for dysphagia) - INR 2.8 (up to 3.45 on 11/08), pharmacy following - continue diltiazem drip until HR <100 and able to restart po medications - enoxaparin as currently NPO, resuming warfarin as soon as able Status: Acute (3) Dysphagia: Problem comment: -acute on chronic, intermittent worsening episodes -reports no previous workup, on daily PPI (continue this) -NPO as failed bedside swallow evaluation with RN. Holding oral meds until STEWARD/STEWARDESS BATH evaluation Status: Acute (4) Bilateral edema of lower extremity: Problem comment: -acute on chronic, currently worse than baseline without relief from home prn HCTZ -concern for HFrEF; BNP > 10,000, BLE Doppler ultrasound negative for DVT. TTE ordered -IV Lasix ordered BID Status: Acute (5) Erythema of skin: Problem comment: - LLE, noted 11/08, per patient this is baseline. Monitor closely for s/sx of infectious cellulitis Status: Acute (6) Elevated LFTs: Problem comment: - bilirubin 3.6 -> 2.7, direct bilirubin 0.8, AST 39 and ALT 15 - unclear baseline - no concerning ETOH use, possibly congestive hepatopathy Status: Acute (7) Fall: Problem comment: -reported outside of ED on 11/07 -right knee x-ray without acute injury -monitor for new or worsening symptoms -PT/OT Status: Acute (8) Weakness: Problem comment: -generalized, unknown if acute on chronic -PT/OT consults -social work program coordinator for discharge planning/placement needs Status: Acute (9) Moderate protein-calorie malnutrition: Problem comment: - as evidenced by a reported 30 pound weight loss in the past year, BMI of 19, difficulty with po intake Status: Acute (10) Hyperlipidemia: Problem comment: - on Ezetimibe as an outpatient Status: Acute Plan - per above (await TTE results, continue to diurese, follow HR, advance diet per STEWARD/STEWARDESS BATH results) - continue Diltiazem gtt until able to safely take pills - attempted to call daughter Gianna with an update, no answer Subjective Date Seen: 11/08/25 Interval history: Lakhwinder was admitted to the hospital on 11/07 for a R sided PNA with concern for aspiration and a fib with RVR. Presented to the ER with acute on chronic weakness and difficulty swallowing, concern for aspiration. Diltiazem gtt initiated in ER, Ceftriaxone and Azithromycin started for PNA. Evidence of CHF exacerbation (LE edema worse than baseline, BNP >10k), started on IV Furosemide BID. Failed bedside swallow with nursing staff, STEWARD/STEWARDESS BATH evaluation ordered. This morning, Lakhwinder feels hungry. She is also tired, has not yet tried getting up from bed. Therapies have been ordered. No CP, no dyspnea at rest. HR 120-130s overnight, Diltiazem drip increased this morning with improvement to 90-100s. TTE ordered. Exam Narrative: Exam Narrative: GEN: Alert and awake, sitting comfortably in bed HEENT: EOMIs bilaterally, no scleral icterus CV: Irregular rhythm, rate 100s during my exam R: No wheezing, mild bibasilar rales R>L Ext: 3+ pitting bilateral lower extremity Skin: There is shiny erythema noted of LLE over ortiz, no open skin noted. Mild warmth, no ttp. Patient states this is baseline Neuro: No focal deficits on limited exam Psych: Appears to have mild cognitive impairment, no agitation Const: Vital Signs, click to edit/add: Vital Signs - 24 hr 11/07/25 11:44 11/07/25 13:40 11/07/25 13:41 Temperature 97.9 F Pulse Rate Pulse Rate [Left P ulse Oximeter] 112 H Respiratory Rate 18 26 H 23 Blood Pressure 126/86 Blood Pressure [Le ft Arm] Blood Pressure [Le ft Upper Arm] 134/85 Blood Pressure [Ri ght Arm] Pulse Oximetry 94 Oxygen Delivery Me thod Room Air Oxygen Flow Rate 11/07/25 13:45 11/07/25 14:00 11/07/25 14:15 Temperature Pulse Rate 130 H 111 H Pulse Rate [Left P ulse Oximeter] Respiratory Rate 23 19 19 Blood Pressure Blood Pressure [Le ft Arm] Blood Pressure [Le ft Upper Arm] Blood Pressure [Ri ght Arm] Pulse Oximetry 92 95 Oxygen Delivery Me thod Oxygen Flow Rate 11/07/25 15:16 11/07/25 15:30 11/07/25 15:45 Temperature Pulse Rate 96 Pulse Rate [Left P ulse Oximeter] Respiratory Rate 17 22 38 H Blood Pressure Blood Pressure [Le ft Arm] Blood Pressure [Le ft Upper Arm] Blood Pressure [Ri ght Arm] Pulse Oximetry Oxygen Delivery Me thod Oxygen Flow Rate 11/07/25 16:07 11/07/25 16:09 11/07/25 16:31 Temperature Pulse Rate Pulse Rate [Left P ulse Oximeter] Respiratory Rate 23 17 14 Blood Pressure 129/83 Blood Pressure [Le ft Arm] Blood Pressure [Le ft Upper Arm] Blood Pressure [Ri ght Arm] Pulse Oximetry Oxygen Delivery Me thod Oxygen Flow Rate 11/07/25 16:45 11/07/25 16:57 11/07/25 17:00 Temperature Pulse Rate Pulse Rate [Left P ulse Oximeter] Respiratory Rate 22 25 H 27 H Blood Pressure 159/92 H Blood Pressure [Le ft Arm] Blood Pressure [Le ft Upper Arm] Blood Pressure [Ri ght Arm] Pulse Oximetry Oxygen Delivery Me thod Oxygen Flow Rate 11/07/25 17:02 11/07/25 17:29 11/07/25 17:29 Temperature 97.4 F L Pulse Rate Pulse Rate [Left P ulse Oximeter] 84 Respiratory Rate 26 H 20 Blood Pressure 140/99 H Blood Pressure [Le ft Arm] 137/87 Blood Pressure [Le ft Upper Arm] Blood Pressure [Ri ght Arm] Pulse Oximetry 93 Oxygen Delivery Me thod Room Air Room Air Oxygen Flow Rate 11/07/25 17:30 11/07/25 17:33 11/07/25 17:45 Temperature 97.5 F L Pulse Rate 104 H Pulse Rate [Left P ulse Oximeter] 95 88 Respiratory Rate Blood Pressure Blood Pressure [Le ft Arm] 147/110 H 148/107 H Blood Pressure [Le ft Upper Arm] Blood Pressure [Ri ght Arm] Pulse Oximetry 86 L 90 Oxygen Delivery Me thod Room Air Oxygen Flow Rate 11/07/25 18:00 11/07/25 18:15 11/07/25 18:30 Temperature Pulse Rate Pulse Rate [Left P ulse Oximeter] 95 110 H Respiratory Rate 18 Blood Pressure Blood Pressure [Le ft Arm] 149/111 H 148/104 H Blood Pressure [Le ft Upper Arm] Blood Pressure [Ri ght Arm] Pulse Oximetry 94 94 88 Oxygen Delivery Me thod Room Air Room Air Room Air Oxygen Flow Rate 11/07/25 18:45 11/07/25 19:00 11/07/25 19:00 Temperature 97.6 F Pulse Rate 113 H Pulse Rate [Left P ulse Oximeter] 97 116 H Respiratory Rate 20 Blood Pressure Blood Pressure [Le ft Arm] 123/92 H Blood Pressure [Le ft Upper Arm] Blood Pressure [Ri ght Arm] 137/87 Pulse Oximetry 94 94 Oxygen Delivery Me thod Room Air Room Air Oxygen Flow Rate 11/07/25 19:15 11/07/25 19:30 11/07/25 19:30 Temperature Pulse Rate Pulse Rate [Left P ulse Oximeter] 103 H 103 H 90 Respiratory Rate 18 Blood Pressure Blood Pressure [Le ft Arm] Blood Pressure [Le ft Upper Arm] Blood Pressure [Ri ght Arm] 134/90 H 118/86 Pulse Oximetry Oxygen Delivery Me thod Oxygen Flow Rate 11/07/25 19:57 11/07/25 20:00 11/07/25 20:05 Temperature 97.5 F L Pulse Rate Pulse Rate [Left P ulse Oximeter] 92 95 80 Respiratory Rate 20 Blood Pressure Blood Pressure [Le ft Arm] Blood Pressure [Le ft Upper Arm] Blood Pressure [Ri ght Arm] 76/53 L 82/52 L 88/59 L Pulse Oximetry 88 Oxygen Delivery Me thod Room Air Oxygen Flow Rate 11/07/25 20:10 11/07/25 20:15 11/07/25 20:20 Temperature Pulse Rate Pulse Rate [Left P ulse Oximeter] 84 86 85 Respiratory Rate Blood Pressure Blood Pressure [Le ft Arm] Blood Pressure [Le ft Upper Arm] Blood Pressure [Ri ght Arm] 95/70 92/60 95/65 Pulse Oximetry Oxygen Delivery Me thod Oxygen Flow Rate 11/07/25 20:25 11/07/25 20:30 11/07/25 20:35 Temperature Pulse Rate Pulse Rate [Left P ulse Oximeter] 81 77 71 Respiratory Rate 18 Blood Pressure Blood Pressure [Le ft Arm] Blood Pressure [Le ft Upper Arm] Blood Pressure [Ri ght Arm] 86/61 L 94/54 L 82/53 L Pulse Oximetry 91 Oxygen Delivery Me thod Room Air Oxygen Flow Rate 11/07/25 20:37 11/07/25 20:40 11/07/25 20:45 Temperature Pulse Rate Pulse Rate [Left P ulse Oximeter] 63 81 900 H Respiratory Rate Blood Pressure Blood Pressure [Le ft Arm] Blood Pressure [Le ft Upper Arm] Blood Pressure [Ri ght Arm] 87/58 L 82/60 L 94/52 L Pulse Oximetry Oxygen Delivery Me thod Oxygen Flow Rate 11/07/25 20:50 11/07/25 20:55 11/07/25 21:00 Temperature Pulse Rate Pulse Rate [Left P ulse Oximeter] 77 62 68 Respiratory Rate Blood Pressure Blood Pressure [Le ft Arm] Blood Pressure [Le ft Upper Arm] Blood Pressure [Ri ght Arm] 91/60 92/59 L 93/60 Pulse Oximetry Oxygen Delivery Me thod Oxygen Flow Rate 11/07/25 21:05 11/07/25 21:10 11/07/25 21:15 Temperature Pulse Rate Pulse Rate [Left P ulse Oximeter] 67 64 74 Respiratory Rate Blood Pressure Blood Pressure [Le ft Arm] Blood Pressure [Le ft Upper Arm] Blood Pressure [Ri ght Arm] 101/57 L 103/64 118/75 Pulse Oximetry Oxygen Delivery Me thod Oxygen Flow Rate 11/07/25 21:30 11/07/25 21:45 11/07/25 22:00 Temperature Pulse Rate Pulse Rate [Left P ulse Oximeter] 72 76 111 H Respiratory Rate Blood Pressure Blood Pressure [Le ft Arm] Blood Pressure [Le ft Upper Arm] Blood Pressure [Ri ght Arm] 101/80 124/90 H 118/66 Pulse Oximetry Oxygen Delivery Me thod Oxygen Flow Rate 11/07/25 22:18 11/07/25 22:30 11/07/25 22:42 Temperature 97.2 F L Pulse Rate 109 H Pulse Rate [Left P ulse Oximeter] 124 H 108 H Respiratory Rate 18 Blood Pressure Blood Pressure [Le ft Arm] Blood Pressure [Le ft Upper Arm] Blood Pressure [Ri ght Arm] 115/67 123/67 Pulse Oximetry 91 Oxygen Delivery Me thod Room Air Oxygen Flow Rate 11/07/25 22:45 11/07/25 23:00 11/07/25 23:00 Temperature Pulse Rate Pulse Rate [Left P ulse Oximeter] 108 H 87 87 Respiratory Rate 16 Blood Pressure Blood Pressure [Le ft Arm] Blood Pressure [Le ft Upper Arm] Blood Pressure [Ri ght Arm] 126/65 115/74 Pulse Oximetry Oxygen Delivery Me thod Oxygen Flow Rate 11/07/25 23:15 11/07/25 23:30 11/07/25 23:37 Temperature Pulse Rate Pulse Rate [Left P ulse Oximeter] 116 H 90 92 Respiratory Rate Blood Pressure Blood Pressure [Le ft Arm] Blood Pressure [Le ft Upper Arm] Blood Pressure [Ri ght Arm] 123/89 95/72 118/80 Pulse Oximetry Oxygen Delivery Me thod Oxygen Flow Rate 11/07/25 23:45 11/08/25 00:00 11/08/25 00:15 Temperature Pulse Rate Pulse Rate [Left P ulse Oximeter] 116 H 104 H 110 H Respiratory Rate Blood Pressure Blood Pressure [Le ft Arm] Blood Pressure [Le ft Upper Arm] Blood Pressure [Ri ght Arm] 122/78 121/84 125/104 H Pulse Oximetry 90 Oxygen Delivery Me thod Room Air Oxygen Flow Rate 11/08/25 00:30 11/08/25 00:54 11/08/25 01:00 Temperature 97.1 F L Pulse Rate Pulse Rate [Left P ulse Oximeter] 97 109 H 95 Respiratory Rate 16 Blood Pressure Blood Pressure [Le ft Arm] Blood Pressure [Le ft Upper Arm] Blood Pressure [Ri ght Arm] 119/82 90/59 L 122/82 Pulse Oximetry 90 90 Oxygen Delivery Me thod Room Air Nasal Cannula Oxygen Flow Rate 1 11/08/25 01:15 11/08/25 01:30 11/08/25 01:45 Temperature Pulse Rate Pulse Rate [Left P ulse Oximeter] 109 H 99 91 Respiratory Rate Blood Pressure Blood Pressure [Le ft Arm] Blood Pressure [Le ft Upper Arm] Blood Pressure [Ri ght Arm] 119/74 121/98 H 129/80 Pulse Oximetry 92 94 Oxygen Delivery Me thod Nasal Cannula Nasal Cannula Oxygen Flow Rate 1 11/08/25 02:00 11/08/25 02:15 11/08/25 02:30 Temperature Pulse Rate Pulse Rate [Left P ulse Oximeter] 91 109 H 90 Respiratory Rate Blood Pressure Blood Pressure [Le ft Arm] Blood Pressure [Le ft Upper Arm] Blood Pressure [Ri ght Arm] 123/86 119/71 126/90 H Pulse Oximetry Oxygen Delivery Me thod Oxygen Flow Rate 11/08/25 02:45 11/08/25 02:58 11/08/25 03:00 Temperature 97.5 F L Pulse Rate 92 Pulse Rate [Left P ulse Oximeter] 99 114 H Respiratory Rate 18 Blood Pressure Blood Pressure [Le ft Arm] Blood Pressure [Le ft Upper Arm] Blood Pressure [Ri ght Arm] 122/74 124/89 Pulse Oximetry 90 Oxygen Delivery Me thod Room Air Oxygen Flow Rate 11/08/25 03:00 11/08/25 03:15 11/08/25 03:30 Temperature Pulse Rate Pulse Rate [Left P ulse Oximeter] 114 H 95 97 Respiratory Rate 18 Blood Pressure Blood Pressure [Le ft Arm] Blood Pressure [Le ft Upper Arm] Blood Pressure [Ri ght Arm] 131/64 121/85 Pulse Oximetry Oxygen Delivery Me thod Oxygen Flow Rate 11/08/25 04:00 11/08/25 04:15 11/08/25 04:30 Temperature Pulse Rate Pulse Rate [Left P ulse Oximeter] 90 99 89 Respiratory Rate Blood Pressure Blood Pressure [Le ft Arm] Blood Pressure [Le ft Upper Arm] Blood Pressure [Ri ght Arm] 108/81 118/79 126/87 Pulse Oximetry Oxygen Delivery Me thod Oxygen Flow Rate 11/08/25 04:45 11/08/25 04:45 11/08/25 05:00 Temperature Pulse Rate Pulse Rate [Left P ulse Oximeter] 111 H 114 H 94 Respiratory Rate Blood Pressure Blood Pressure [Le ft Arm] Blood Pressure [Le ft Upper Arm] Blood Pressure [Ri ght Arm] 118/70 129/77 138/87 Pulse Oximetry Oxygen Delivery Me thod Oxygen Flow Rate 11/08/25 05:00 11/08/25 05:15 11/08/25 05:30 Temperature Pulse Rate Pulse Rate [Left P ulse Oximeter] 94 74 106 H Respiratory Rate Blood Pressure Blood Pressure [Le ft Arm] Blood Pressure [Le ft Upper Arm] Blood Pressure [Ri ght Arm] 129/74 136/95 H Pulse Oximetry Oxygen Delivery Me thod Oxygen Flow Rate 11/08/25 05:45 11/08/25 06:00 11/08/25 06:15 Temperature 97.6 F Pulse Rate Pulse Rate [Left P ulse Oximeter] 118 H 113 H 104 H Respiratory Rate 20 Blood Pressure Blood Pressure [Le ft Arm] Blood Pressure [Le ft Upper Arm] Blood Pressure [Ri ght Arm] 112/74 127/82 129/97 H Pulse Oximetry 91 Oxygen Delivery Me thod Nasal Cannula Oxygen Flow Rate 1 11/08/25 06:30 11/08/25 06:45 11/08/25 07:00 Temperature Pulse Rate Pulse Rate [Left P ulse Oximeter] 133 H 120 H 116 H Respiratory Rate Blood Pressure Blood Pressure [Le ft Arm] Blood Pressure [Le ft Upper Arm] Blood Pressure [Ri ght Arm] 105/72 121/97 H 129/89 Pulse Oximetry Oxygen Delivery Me thod Oxygen Flow Rate 11/08/25 07:15 11/08/25 07:30 Temperature Pulse Rate Pulse Rate [Left P ulse Oximeter] 109 H 133 H Respiratory Rate Blood Pressure Blood Pressure [Le ft Arm] Blood Pressure [Le ft Upper Arm] Blood Pressure [Ri ght Arm] 101/78 133/80 Pulse Oximetry Oxygen Delivery Me thod Oxygen Flow Rate Labs Labs: Laboratory Results - last 24 hr 11/07/25 11/07/25 11/07/25 13:11 13:14 13:57 WBC 9.69 RBC 4.54 Hgb 14.3 Hct 44.0 MCV 97 MCH 32 MCHC 33 RDW Coeff of Camilla 16.7 H Plt Count 268 Neut % (Auto) 82.9 H Lymph % (Auto) 7.5 L [place] % (Auto) 9.0 Eos % (Auto) 0.2 Baso % (Auto) 0.1 Neut # (Auto) 8.00 H Lymph # (Auto) 0.70 L [place] # (Auto) 0.90 Eos # (Auto) 0.02 Baso # (Auto) 0.01 Abs Immat Gran (auto) 0.03 Imm/Tot Granulo (auto) 0.3 INR 2.82 H VBG pH 7.432 H VBG pCO2 50 VBG pO2 < 30.1 VBG HCO3 34 H Sodium 143 Potassium 3.6 Chloride 97 Carbon Dioxide 33 H Anion Gap 13 BUN 15 Creatinine 0.9 Estimated Creat Clear Estimated GFR 63 Glucose 124 H Lactate 1.6 Calcium 8.5 Magnesium 1.6 Total Bilirubin 3.6 H Direct Bilirubin AST 28 ALT 15 Alkaline Phosphatase 65 POC Troponin I High Sensi 13.5 H* C-Reactive Protein 3.8 H NT-Pro-B Natriuret Pep 33825 H Total Protein 7.0 Albumin 4.0 Procalcitonin 0.05 Urine Color Weir A Urine Appearance Turbid A Urine pH 5.5 Ur Specific [place] >= 1.030 Urine Protein 3+ A Urine Glucose (UA) Negative Urine Ketones Negative Urine Blood 1+ A Urine Nitrite Negative Urine Bilirubin 2+ A Urine Urobilinogen 1.0 Ur Leukocyte Esterase Negative Urine RBC 0-2 Urine WBC 5-10 A Ur Squamous Epith Cells Moderate A Calcium Oxalate Crystal Moderate A Urine Bacteria Few A Fine Granular Casts Moderate A SARS-CoV-2 (PCR) Influenza Type A (PCR) Influenza Type B (PCR) RSV (PCR) Lab Acknowledgement Test Added 11/07/25 11/07/25 11/08/25 15:15 16:44 00:00 WBC RBC Hgb Hct MCV MCH MCHC RDW Coeff of Camilla Plt Count Neut % (Auto) Lymph % (Auto) [place] % (Auto) Eos % (Auto) Baso % (Auto) Neut # (Auto) Lymph # (Auto) [place] # (Auto) Eos # (Auto) Baso # (Auto) Abs Immat Gran (auto) Imm/Tot Granulo (auto) INR VBG pH VBG pCO2 VBG pO2 VBG HCO3 Sodium Potassium Chloride Carbon Dioxide Anion Gap BUN Creatinine Estimated Creat Clear Estimated GFR Glucose Lactate Calcium Magnesium Total Bilirubin Direct Bilirubin AST ALT Alkaline Phosphatase POC Troponin I High Sensi 11.6 C-Reactive Protein NT-Pro-B Natriuret Pep Total Protein Albumin Procalcitonin Urine Color Urine Appearance Urine pH Ur Specific [place] Urine Protein Urine Glucose (UA) Urine Ketones Urine Blood Urine Nitrite Urine Bilirubin Urine Urobilinogen Ur Leukocyte Esterase Urine RBC Urine WBC Ur Squamous Epith Cells Calcium Oxalate Crystal Urine Bacteria Fine Granular Casts SARS-CoV-2 (PCR) Negative SARS-CoV-2 Influenza Type A (PCR) Negative PCR FLU A Influenza Type B (PCR) Negative PCR FLU B RSV (PCR) Negative PCR RSV Lab Acknowledgement Test Added 11/08/25 05:46 WBC 7.55 RBC 4.31 Hgb 13.6 Hct 42.3 MCV 98 MCH 32 MCHC 32 RDW Coeff of [place] Plt Count 252 Neut % (Auto) Lymph % (Auto) [place] % (Auto) Eos % (Auto) Baso % (Auto) Neut # (Auto) Lymph # (Auto) [place] # (Auto) Eos # (Auto) Baso # (Auto) Abs Immat Gran (auto) Imm/Tot Granulo (auto) INR 3.45 H VBG pH 7.370 VBG pCO2 61 H* VBG pO2 < 30.1 VBG HCO3 35 H Sodium 142 Potassium 3.7 Chloride 96 Carbon Dioxide 33 H Anion Gap 13 BUN 14 Creatinine 0.8 Estimated Creat Clear 36.70 Estimated GFR 73 Glucose 109 Lactate Calcium 7.8 L Magnesium Total Bilirubin 2.7 H Direct Bilirubin 0.8 H AST 39 H ALT 19 Alkaline Phosphatase 55 POC Troponin I High Sensi C-Reactive Protein 4.5 H NT-Pro-B Natriuret Pep Total Protein 6.6 Albumin 3.8 Procalcitonin Urine Color Urine Appearance Urine pH Ur Specific [place] Urine Protein Urine Glucose (UA) Urine Ketones Urine Blood Urine Nitrite Urine Bilirubin Urine Urobilinogen Ur Leukocyte Esterase Urine RBC Urine WBC Ur Squamous Epith Cells Calcium Oxalate Crystal Urine Bacteria Fine Granular Casts SARS-CoV-2 (PCR) Influenza Type A (PCR) Influenza Type B (PCR) RSV (PCR) Lab Acknowledgement
[2025-11-08] MEDS: SODIUM CHLORIDE 0.9 % (FLUSH) 10 ML SYRINGE 5 ML IVF (09:12)
[2025-11-08] MEDS: PANTOPRAZOLE SODIUM 40 MG INJ IVP (09:13)
[2025-11-08] MEDS: cefTRIAXone 1 GM in 0.9 % SODIUM CHLORIDE Mini-bag 100 ML IVPB (09:13)
[2025-11-08] MEDS: NYSTATIN 500,000 UNIT/5 ML 500000 UNIT PO ×3 (09:24→17:33)
[2025-11-08] MEDS: ENOXAPARIN 60 MG/0.6 ML INJ 55 MG SUBCUT (09:24)
--- NOTE | 2025-11-08 10:15 | W.PC.NUTR.HO ---
Hospital Nutrition Assessment Patient Data Patient Gender: Female Patient Age: 85 Height: 167.64 cm (5 ft 6in) Weight: 55.508 kg (122 lb 6 oz) Body Mass Index: 19.7 Usual Body Weight: 68.039 kg (150 lb) Weight Calculations [place] Body Weight (lbs): 130.00 [place] Body Weight (kg): 58.97 Percent of [place] Body Weight: 94 Adjusted Body Weight (lbs): 128.09 Adjusted Body Weight (kg): 58.10 Percent of Usual Body Weight: 82 Basal Energy Expenditure (BEE): 1103.27 Basal Energy Expenditure (BEE) Adjusted Weight: 1128.06 Activity/Stress Factors Injury Factor/Activity Factor Value: 1.2 Total Energy Requirements Kcal requirements (current wt): 1323.924 Kcal requirements (adj wt): 1353.672 Protein Need (current wt): 1.0 Total Protein (current wt): 55.508 Protein Need (adj wt): 1.0 Total Protein (adj wt): 58.100 Fluid Need (current wt): 30 Total Fluid (current wt): 1665.240 Fluid Need (adj wt): 30 Total Fluid (adj wt): 1743.00 Nutrition Assessment Diet Order: NPO (Needs Speech Evaluation d/t swallowing difficulty) Allergies: NKFA Appetite Prior to Admission: Poor Appetite and Intake: Has had decreased intake recently due to dysphagia Hx Appetite Changes: Yes Hx Weight Loss: Yes (Per MD report, 30 lbs wt loss w/in last year; significant loss @ 20%) Hx Weight Gain: No Nausea: No Vomiting: No Diarrhea: No Hx Constipation: No Chewing Difficulty: No Swallowing Difficulty: Yes (NPO currently - Speech Eval ordered. ) Diagnosis/Symptom or Procedure: Pneumonia, A.Fib. w/ RVR Clinical History: Active Problems Elevated LFTs (Acute) R79.89 Moderate protein-calorie malnutrition (Acute) E44.0 Fall (Acute) W19.XXXA Hyperlipidemia (Acute) E78.5 GERD (gastroesophageal reflux disease) (Acute) K21.9 Thrush (Acute) B37.0 Dysphagia (Acute) R13.10 Weakness (Acute) R53.1 Bilateral edema of lower extremity (Acute) R60.0 Pneumonia (Acute) J18.9 Atrial fibrillation with rapid ventricular response (Acute) I48.91 Current Living Situation: Recently moved to [facility] to be closer to her daughter. Medications Medications: reviewed. Lab Results Lab Results: reviewed. Assessment/Plan PES Statement: Unintentional significant weight loss related to inadequate oral intakes in setting of swallowing difficulties as evidenced by weight loss of about 30 lbs in 1 year, 20% loss. Nutritional Assessment Summary: RDN with nutrition screen related to weight loss within 1 year with swallowing difficulties. Per MD report, patient has lost about 30 lbs within 1 year which is significant weight loss at about 20%. Patient reports having difficulty swallowing certain foods. Per ER note, pt reports liquids are ok but spaghetti and meatballs were difficult. Speech Evaulation ordered. Patient is currently NPO. I suspect patient is at nutrition risk with significant weight loss within the last year in the setting a swallowing difficulty. Discharge Plan-Living Situation: TBD Goals: Advance diet order to at least full liquids per Speech Therapy recommendations. Plan/Recommendation: Diet order per MD order and Speech Therapy recommendations. Current diet order is NPO. No nutrition interventions at this time to due to needing Speech Eval and NPO. RDN will continue to monitor and follow-up prn/when appropriate. Malnutrition Assessment Current Energy Intake: Less Than 75% Estimated Timeframe Of Energy Intake: Greater Than Or Equal To 3 Months Weight Changes: 20% In 12 Months Recommended Malnutrition Diagnosis: Moderate Protein-Calorie Malnutrition and Further Physical Evaluation Required By MD To Determine In The Context: Chronic Illness Based On: Weight Loss and Inadequate Energy Intakes
[2025-11-08] MEDS: METOPROLOL SUCCINATE (XL) 100 MG TAB PO (10:54)
[2025-11-08] MEDS: dilTIAZem HCL 125 MG in 0.9 % SODIUM CHLORIDE 100 ml 100 ML 10 MG IVPB (12:45)
[2025-11-08 15:20] LABS: Potassium* 3.0 mmol/L (3.6-5.1)
--- NOTE | 2025-11-08 15:43 | PC.SOCIAL ---
Discharge planning: sheet metal layout worker met with the pt this afternoon an explained that there is a chance that the pt will be recommended to go to a TCU for short-term rehab after the hospital and she said that she would not go to one and that she didn't need to go. sheet metal layout worker plans to check-in with the pt tomorrow. Social work to follow-up as needed.
[2025-11-08] MEDS: POTASSIUM BICARB 25 MEQ EFFERVESCENT TAB PO (16:16)
[2025-11-08] MEDS: AZITHROMYCIN 500 MG in 0.9 % SODIUM CHLORIDE 250 ml 250 ML 255 MG IVPB (17:35)
[2025-11-08] MEDS: EPINEPHrine 0.1 MG/ML SYRINGE 1 MG IVP (18:29)
--- NOTE | 2025-11-08 18:55 | CRLHL7_ITS ---
For Patients: As a result of the Century Cures Act, medical imaging exams and procedure reports are released immediately into your electronic medical record. You may view this report before your referring provider. If you have questions, please contact your health care provider. INDICATION: Unresponsive TECHNIQUE: Chest radiograph 1 view COMPARISON: 11/07/2025 FINDINGS: Mediastinum: The central pulmonary arteries are enlarged and likely due to pulmonary hypertension. Moderate, stable cardiomegaly is noted. Lung: Mild patchy airspace opacities are present in the right lung base noted with small right pleural effusion, unchanged from prior exam. Bone and Soft tissue: Unremarkable for age. Skin folds are seen over the upper ady thoraces bilaterally. IMPRESSIONS: 1. Mild patchy airspace opacities are present in the right lung base noted with small right pleural effusion, unchanged from prior exam. 2. Moderate, stable cardiomegaly is noted. 3. The central pulmonary arteries are enlarged and likely due to pulmonary hypertension. Dictated by Buddy Wagoner MD @ 11/08/2025 7:12:53 PM Dictated by: Buddy Wagoner MD @ 11/08/2025 19:13:01 (Electronically Signed)
[2025-11-08 19:00] LABS: Hematocrit* 46.3 % (33.0-51.0); Hemoglobin* 14.6 gm/dL (12.0-16.0); Immature Granulocytes Abs Auto 0.10 K/uL (0.00-0.30); Immature Granulocytes Pct Auto 1.1 %; Lymphocytes Absolute Auto 2.39 K/uL (0.90-2.90); Mean Corpuscular HGB Conc 32 gm/dL (32-36); Mean Corpuscular Hemoglobin 32 pg (26-34); Mean Corpuscular Volume 100 fL (80-100); RDW Coefficient of Variation % 17.0 % (11.5-15.5); Red Blood Count* 4.64 m/uL (4.00-5.20); White Blood Count* 9.14 K/uL (4.50-11.00)
[2025-11-08 19:01] LABS: Slide Review Reflex No
--- NOTE | 2025-11-08 19:01 | CRLHL7_ITS ---
For Patients: As a result of the Century Cures Act, medical imaging exams and procedure reports are released immediately into your electronic medical record. You may view this report before your referring provider. If you have questions, please contact your health care provider. INDICATION: Altered mental status. Unresponsive post code. TECHNIQUE: CT head without contrast. COMPARISON: None. FINDINGS: CSF spaces: Moderate diffuse parenchymal volume loss Brain parenchyma and extra-axial spaces: Moderate chronic white matter ischemic disease. The travis-white differentiation is normal. No sign of mass, hemorrhage, or midline shift. No extra-axial fluid collection. Skull base and calvarium: The visualized paranasal sinuses and mastoid air cells demonstrate no acute or significant findings. The visualized orbits are grossly unremarkable. No skull fractures. IMPRESSION: No acute intracranial abnormality on this noncontrast study. Please note that all CT scans at this facility use dose modulation, iterative reconstruction, and/or weight-based dosing when appropriate to reduce radiation dose to as low as reasonably achievable. Dictated by Chidi Collier MD @ 11/08/2025 9:06:39 PM (Electronically Signed)
--- NOTE | 2025-11-08 19:01 | CRLHL7_ITS ---
For Patients: As a result of the Century Cures Act, medical imaging exams and procedure reports are released immediately into your electronic medical record. You may view this report before your referring provider. If you have questions, please contact your health care provider. INDICATION: Unresponsive post code. TECHNIQUE: CT chest acquired with 75 cc Omnipaque 350 IV contrast. COMPARISON: None. FINDINGS: Heart and vasculature: No sign of central pulmonary embolism. Evaluation of the segmental and subsegmental branches is limited secondary to motion artifact. Cardiomegaly. Thoracic aorta and pulmonary artery are normal in caliber. Lungs and pleura: Peribronchial thickening with right middle/lower lobe, and left basilar consolidations. Moderate right and trace left pleural effusions. No pneumothorax. Lymph nodes/mediastinum: No mediastinal, hilar, or axillary adenopathy. Chest wall: No masses. Upper abdomen: No acute or significant findings. Bones: Unremarkable for age. IMPRESSION: Peribronchial thickening with right middle/lower lobe and left basilar consolidations, likely aspiration pneumonitis/pneumonia. Moderate right and trace left pleural effusions. No central pulmonary embolism. Evaluation of the segmental and subsegmental branches is limited secondary to motion artifact. Otherwise, no acute intrathoracic abnormality. Please note that all CT scans at this facility use dose modulation, iterative reconstruction, and/or weight-based dosing when appropriate to reduce radiation dose to as low as reasonably achievable. Dictated by Chidi Collier MD @ 11/08/2025 9:18:57 PM (Electronically Signed)
[2025-11-08] MEDS: ONDANSETRON 2 MG/ML inj 4 MG IVP (19:07)
[2025-11-08 19:14] LABS: Albumin* 3.8 g/dL (3.3-5.0); Chloride* 97 mmol/L (96-114); Potassium* 3.0 mmol/L (3.6-5.1); Sodium* 143 mmol/L (135-149)
--- NOTE | 2025-11-08 19:15 | ED.GENADULT ---
HPI - General Adult General Time Seen by Provider: 19:16 Date Seen: 11/08/25 Chief complaint: Altered Mental Status Stated complaint: Code Blue Time Seen by Provider: 11/07/25 12:53 Source: patient and RN notes reviewed Mode of arrival: ambulatory Limitations: no limitations History of Present Illness HPI narrative: I responded to code blue. Patient was eating dinner, became unresponsive, hypotensive. On my initial arrival, patient was lying flat, palpable pulse although blood pressures trended downward, oxygen saturation 95% but patient with poor respiratory effort and agonal respirations. Bag-valve mask was initiated, reported initial difficulty bagging which improved. Patient ceased respiratory efforts and lost pulses. Chest compressions were initiated, epinephrine was given with Rosc after 1 round. Planned to intubate patient she started moving and finding the bag, trying to pull straps off of the Cheikh. Bag-valve mask was stopped and patient was awake alert, able to answer questions. Said she felt awful. Oxygen saturation 100% on 2 L. Because patient was awake alert, oxygenating well, protecting her airway, decision to defer intubation. Patient initially was in atrial fibrillation with RVR after resuscitative efforts which proceeded to rate controlled atrial fibrillation. Critical care time 20 minutes Related Data Home Medications ?Medication ?Instructions ?Recorded ?Confirmed cholecalciferol (vitamin D3) 50 50 mcg PO DAILY 11/07/25 11/07/25 mcg (2,000 unit) capsule cyanocobalamin (vitamin B-12) 1,000 mcg PO DAILY 11/07/25 11/07/25 1,000 mcg tablet ezetimibe 10 mg tablet 10 mg PO DAILY 11/07/25 11/07/25 hydrochlorothiazide 25 mg tablet 25 mg PO DAILY PRN 11/07/25 11/07/25 metoprolol succinate 100 mg 100 mg PO DAILY 11/07/25 11/07/25 tablet,extended release 24 hr (Toprol XL) omeprazole 20 mg capsule,delayed 20 mg PO DAILY 11/07/25 11/07/25 release warfarin 1 mg tablet 1 mg PO QPM 11/07/25 11/07/25 Allergies Allergy/AdvReac Type Severity Reaction Status Date / Time No Known Drug Allergies Allergy Verified 11/07/25 11:59 [facility] Medical History (Updated 11/08/25 @ 11:12 by Eugenia Earl MD) Moderate protein-calorie malnutrition ?E44.0 - Moderate protein-calorie malnutrition (ICD-10) Hyperlipidemia ?E78.5 - Hyperlipidemia, unspecified (ICD-10) GERD (gastroesophageal reflux disease) ?K21.9 - Gastro-esophageal reflux disease without esophagitis (ICD-10) Dysphagia ?R13.10 - Dysphagia, unspecified (ICD-10) Social History What is your current living situation?: I presently have a place to live Problems where you live: no known problems Problems where you live details: NA In the past 12 months, utilities in danger of being shut off: no In past 12 months, lack of transportation kept you from medical appts, meetings, work, or getting things needed for daily living: no In the past 12 mos, have been you worried that your food would run out before you had money to buy more?: never true In the past 12 mos, the food you bought just didn't last and you didn't have money to buy more?: never true Highest level of school completed/degree received: high school graduate Smoking Status: Former smoker Do you use any of these nicotine containing products: None Second hand tobacco smoke exposure: Yes How often do you have a drink containing alcohol: monthly or less Alcohol type: beer How many standard drinks containing alcohol do you have on a typical day: 1 or 2 How often do you have six or more drinks on one occasion: Never AUDIT-C Alcohol total score: 1 Non-prescribed substance use: denies use Caffeine: Yes (coffee) How often does anyone, including family, friends and others, physically hurt you: never How often does anyone, including family, friends and others, insult or talk down to you: never How often does anyone, including family, friends and others, threaten you with harm: never How often does anyone, including family, friends and others, scream or curse at you: never service: No Course Vital Signs Vital signs: Initial Vital Signs Temperature 97.9 F 11/07/25 11:44 Temperature Source Temporal Artery Scan 11/07/25 11:44 Pulse Rate 112 H 11/07/25 11:44 Pulse Rhythm Irregular 11/07/25 11:44 Respiratory Rate 18 11/07/25 11:44 Blood Pressure 134/85 11/07/25 11:44 Blood Pressure Mean 101 11/07/25 11:44 Blood Pressure Position Sitting 11/07/25 11:44 Pulse Oximetry 94 11/07/25 11:44 Oxygen Delivery Method Room Air 11/07/25 11:44 Vital Signs Temperature 97.9 F 11/07/25 11:44 Pulse Rate 112 H 11/07/25 11:44 Respiratory Rate 18 11/07/25 11:44 Blood Pressure 134/85 11/07/25 11:44 Pulse Oximetry 94 11/07/25 11:44 Oxygen Delivery Method Room Air 11/07/25 11:44 Temperature 97.2 F L 11/08/25 17:31 Pulse Rate 84 11/08/25 17:31 Respiratory Rate 22 11/08/25 17:31 Blood Pressure 109/76 11/08/25 17:31 Pulse Oximetry 94 11/08/25 17:31 Oxygen Delivery Method Room Air 11/08/25 17:31 Oxygen Flow Rate 0 11/08/25 08:00 Medications Administered Medications: Generic Name Dose Route Start Last Admin Trade Name Freq PRN Reason Stop Dose Admin Diltiazem HCl 125 mg/ Sodium 125 mls @ 5 mls/hr 11/07/25 16:20 11/08/25 15:26 Chloride IVPB 0 mg/hr CONT SHAMA 0 mls/hr Protocol Titration 5 MG/HR Ceftriaxone Sodium 1 gm/ 100 mls @ 200 mls/hr 11/08/25 09:00 11/08/25 09:45 Sodium Chloride IVPB Infused Q24H SHAMA Infusion Azithromycin 500 mg/ Sodium 255 mls @ 255 mls/hr 11/07/25 18:00 11/08/25 17:35 Chloride IVPB 255 mls/hr Q24H SHAMA Administration Sodium Chloride 1,000 mls @ 35 mls/hr 11/08/25 07:20 11/08/25 19:04 0.9 % Sodium Chloride 1000 Ml IV 100 mls/hr .Q24H SHAMA Infusion Nystatin 500,000 unit 11/07/25 21:00 11/08/25 17:33 Nystatin 500,000 Unit/5 Ml PO 500,000 unit QID SHAMA Administration Pantoprazole Sodium 40 mg 11/07/25 21:00 11/08/25 09:13 Pantoprazole Sodium 40 Mg Inj IVP 40 mg DAILY SHAMA Administration Sodium Chloride 5 ml 11/07/25 21:00 11/08/25 09:12 Sodium Chloride 0.9 % (Flush) 10 Ml Syringe IVF 5 ml BID SHAMA Administration Discontinued Medications Generic Name Dose Route Start Last Admin Trade Name Freq PRN Reason Stop Dose Admin Diltiazem HCl 10 mg 11/07/25 14:34 11/07/25 15:41 Diltiazem 5 Mg/Ml Inj IVP 11/07/25 14:35 10 mg ONCE ONE Administration Diltiazem HCl 10 mg 11/07/25 16:18 11/07/25 16:53 Diltiazem 5 Mg/Ml Inj IVP 11/07/25 16:19 10 mg ONCE ONE Administration Enoxaparin Sodium 55 mg 11/07/25 21:00 11/08/25 09:24 Enoxaparin 60 Mg/0.6 Ml Inj SUBCUT 55 mg Q12H SHAMA Administration Furosemide 40 mg 11/07/25 18:06 11/07/25 18:52 Furosemide 10 Mg/Ml Inj IVP 11/07/25 18:07 40 mg ONCE ONE Administration Ceftriaxone Sodium 1 gm/ 100 mls @ 200 mls/hr 11/07/25 14:34 11/07/25 16:12 Sodium Chloride IVPB 11/07/25 14:35 Infused ONCE ONE Infusion Magnesium Sulfate 2 gm in 50 mls @ 25 mls/hr 11/07/25 18:09 11/07/25 23:53 Magnesium Iv IVPB 11/07/25 20:08 Infused ONCE ONE Infusion Sodium Chloride 1,000 mls @ 100 mls/hr 11/07/25 18:50 11/07/25 23:52 0.9 % Sodium Chloride 1000 Ml IV Infused .Q10H SHAMA Infusion Sodium Chloride 250 mls @ 250 mls/hr 11/07/25 20:39 11/07/25 23:52 0.9 % Sodium Chloride 250 Ml IV 11/07/25 21:38 Infused .Q1H ONE Infusion Metoprolol Succinate 100 mg 11/08/25 09:58 11/08/25 10:54 Metoprolol Succinate (Xl) 100 Mg Tab PO 11/08/25 09:59 100 mg ONCE ONE Administration Ondansetron HCl 4 mg 11/07/25 17:33 11/07/25 20:30 Ondansetron 2 Mg/Ml Inj IVP 4 mg Q4H PRN Administration Nausea Ondansetron HCl 4 mg 11/08/25 19:01 11/08/25 19:07 Ondansetron 2 Mg/Ml Inj IVP 11/08/25 19:02 4 mg ONCE ONE Administration Pantoprazole Sodium 40 mg 11/07/25 19:10 11/07/25 23:53 Pantoprazole Sodium 40 Mg Inj IVP Not Given DAILY SHAMA Potassium Bicarbonate 25 meq 11/08/25 16:00 11/08/25 16:16 Potassium Bicarb 25 Meq Effervescent Tab PO 11/08/25 18:01 25 meq Q2H SHAMA Administration Warfarin Sodium 1 mg 11/07/25 18:00 11/07/25 18:54 Warfarin 2 Mg Tablet PO 1 mg QPM SHAMA Administration Warfarin Sodium 0 each 11/08/25 17:00 11/08/25 16:18 No Warfarin Today PO 11/08/25 17:01 Not Given ONCE ONE Medical Decision Making Lab Data Labs: Lab Results 11/07/25 11/07/25 11/07/25 Range/Units 13:11 13:14 13:57 WBC 9.69 (4.50-11.00) K/uL RBC 4.54 (4.00-5.20) m/uL Hgb 14.3 (12.0-16.0) gm/dL Hct 44.0 (33.0-51.0) % MCV 97 (80-100) fL MCH 32 (26-34) pg MCHC 33 (32-36) gm/dL RDW Coeff of Camilla 16.7 H (11.5-15.5) % Plt Count 268 (140-440) K/uL Neut % (Auto) 82.9 H (42.0-72.0) % Lymph % (Auto) 7.5 L (20-44) % [place] % (Auto) 9.0 (0.0-11.0) % Eos % (Auto) 0.2 (0.0-7.0) % Baso % (Auto) 0.1 (0.0-3.0) % Neut # (Auto) 8.00 H (1.7-7.0) K/uL Lymph # (Auto) 0.70 L (0.90-2.90) K/uL [place] # (Auto) 0.90 (0.00-0.90) K/UL Eos # (Auto) 0.02 (0.00-0.50) K/uL Baso # (Auto) 0.01 (0.00-0.30) K/uL Abs Immat Gran (auto) 0.03 (0.00-0.30) K/uL Imm/Tot Granulo (auto) 0.3 % INR 2.82 H (0.91-1.10) VBG pH 7.432 H (7.32-7.43) VBG pCO2 50 (40-50) mmHG VBG pO2 < 30.1 (25-47) mmHG VBG HCO3 34 H (21-28) mmol/L Sodium 143 (135-149) mmol/L Potassium 3.6 (3.6-5.1) mmol/L Chloride 97 (96-114) mmol/L Carbon Dioxide 33 H (20-32) mmol/L Anion Gap 13 (7-15) mEq/L BUN 15 (7-30) mg/dL Creatinine 0.9 (0.5-1.5) mg/dL Estimated GFR 63 ml/min Glucose 124 H (60-115) mg/dL Lactate 1.6 (0.5-1.9) mmol/L Calcium 8.5 (8.4-10.6) mg/dL Magnesium 1.6 (1.5-2.6) mg/dL Total Bilirubin 3.6 H (0.1-1.5) mg/dL AST 28 (12-35) U/L ALT 15 (4-35) U/L Alkaline Phosphatase 65 (40-150) U/L POC Troponin I High Sensi 13.5 H* (2.9-13.0) pg/mL C-Reactive Protein 3.8 H (0.5-1.0) mg/dL NT-Pro-B Natriuret Pep 03628 H (See Note) pg/mL Total Protein 7.0 (6.0-8.3) g/dL Albumin 4.0 (3.3-5.0) g/dL Procalcitonin 0.05 (<0.50) ng/mL Urine Color [place] A (Yellow) Urine Appearance Turbid A (Clear) Urine pH 5.5 (5.0-8.5) Ur Specific [place] >= 1.030 (1.000-1.030) Urine Protein 3+ A (Negative) Urine Glucose (UA) Negative (Negative) Urine Ketones Negative (Negative) Urine Blood 1+ A (Negative) Urine Nitrite Negative (Negative) Urine Bilirubin 2+ A (Negative) Urine Urobilinogen 1.0 (0.2-1.0) Ur Leukocyte Esterase Negative (Negative) Urine RBC 0-2 (0-2) Urine WBC 5-10 A (0-5) Ur Squamous Epith Cells Moderate A (None-Few) Calcium Oxalate Crystal Moderate A (None) Urine Bacteria Few A (None) Fine Granular Casts Moderate A (None) Lab Acknowledgement Test Added 11/07/25 11/07/25 Range/Units 15:15 16:44 WBC (4.50-11.00) K/uL RBC (4.00-5.20) m/uL Hgb (12.0-16.0) gm/dL Hct (33.0-51.0) % MCV (80-100) fL MCH (26-34) pg MCHC (32-36) gm/dL RDW Coeff of Camilla (11.5-15.5) % Plt Count (140-440) K/uL Neut % (Auto) (42.0-72.0) % Lymph % (Auto) (20-44) % [place] % (Auto) (0.0-11.0) % Eos % (Auto) (0.0-7.0) % Baso % (Auto) (0.0-3.0) % Neut # (Auto) (1.7-7.0) K/uL Lymph # (Auto) (0.90-2.90) K/uL [place] # (Auto) (0.00-0.90) K/UL Eos # (Auto) (0.00-0.50) K/uL Baso # (Auto) (0.00-0.30) K/uL Abs Immat Gran (auto) (0.00-0.30) K/uL Imm/Tot Granulo (auto) % INR (0.91-1.10) VBG pH (7.32-7.43) VBG pCO2 (40-50) mmHG VBG pO2 (25-47) mmHG VBG HCO3 (21-28) mmol/L Sodium (135-149) mmol/L Potassium (3.6-5.1) mmol/L Chloride (96-114) mmol/L Carbon Dioxide (20-32) mmol/L Anion Gap (7-15) mEq/L BUN (7-30) mg/dL Creatinine (0.5-1.5) mg/dL Estimated GFR ml/min Glucose (60-115) mg/dL Lactate (0.5-1.9) mmol/L Calcium (8.4-10.6) mg/dL Magnesium (1.5-2.6) mg/dL Total Bilirubin (0.1-1.5) mg/dL AST (12-35) U/L ALT (4-35) U/L Alkaline Phosphatase (40-150) U/L POC Troponin I High Sensi 11.6 (2.9-13.0) pg/mL C-Reactive Protein (0.5-1.0) mg/dL NT-Pro-B Natriuret Pep (See Note) pg/mL Total Protein (6.0-8.3) g/dL Albumin (3.3-5.0) g/dL Procalcitonin (<0.50) ng/mL Urine Color (Yellow) Urine Appearance (Clear) Urine pH (5.0-8.5) Ur Specific [place] (1.000-1.030) Urine Protein (Negative) Urine Glucose (UA) (Negative) Urine Ketones (Negative) Urine Blood (Negative) Urine Nitrite (Negative) Urine Bilirubin (Negative) Urine Urobilinogen (0.2-1.0) Ur Leukocyte Esterase (Negative) Urine RBC (0-2) Urine WBC (0-5) Ur Squamous Epith Cells (None-Few) Calcium Oxalate Crystal (None) Urine Bacteria (None) Fine Granular Casts (None) Lab Acknowledgement Test Added Discharge Plan Discharge Clinical Impression: Atrial fibrillation with rapid ventricular response, Pneumonia, Atypical chest pain, Elevated brain natriuretic peptide (BNP) level, Bilateral edema of lower extremity, Weakness Patient Disposition: Admitted As Inpatient Condition: Improved Procedures ABG Interpretation ABG Results: 11/07/25 13:57 VBG pH 7.432 H VBG pCO2 50 VBG pO2 < 30.1 VBG HCO3 34 H
[2025-11-08 19:17] LABS: Alanine Aminotransferase* 30 U/L (4-35); Alkaline Phosphatase* 67 U/L (40-150); Anion Gap 21 mEq/L (7-15); Aspartate Amino Transferase* 37 U/L (12-35); Bilirubin Total* 1.7 mg/dL (0.1-1.5); Blood Urea Nitrogen* 14 mg/dL (7-30); Calcium* 7.6 mg/dL (8.4-10.6); Carbon Dioxide* 25 mmol/L (20-32); Creatinine* 1.0 mg/dL (0.5-1.5); Est. Creatinine Clearance* 36.70; Estimated Glomerular Filt Rate 56 ml/min; Glucose* 147 mg/dL (60-115); Total Protein* 6.5 g/dL (6.0-8.3)
--- NOTE | 2025-11-08 19:19 | PM.CBS ---
Code Blue Summary Code Summary Date of code call: 11/08/25 Code event: respiratory failure, rapid Afib and hypotension Duration of CPR: 4 min Brief history of events (including suspected etiology): Was reported to me by state tested nursing assistant the patient was eating her dinner and then reported feeling nauseous. Became unresponsive. Upon arrival into the room with charge nurse, patient is sitting up in bed, systolic pressure 68, unresponsive to sternal rub, agonal breathing. Pulse present. HR on monitor 80-90s. Oxygen saturations 90s on room air. Pupils cloudy, EOMI. Patient was placed into supine position, normal saline bolus started, oxygen per N/C applied. Still no appropriate response to noxious stimuli, agonal breathing persists. No longer palpable pulse. CPR initiated. Difficult to bag on initiation. 1 mg IV epi given. Nasal airway placed. Eventually regain pulse. Plan to intubate with glide scope however patient awakened, began resisting, began talking. Monitor showing AFib now 90-110s. SBP improved to >100. Call was made to [facility] with plan to transfer when intubated. Current road conditions are hazardous. As patient was not intubated, decision was to remain locally in CCU. She is made NPO again. Continue normal saline at 100 mL/hr. Cbc rather unremarkable, CMP pending. Troponin and VBG pending. EKG confirmed AFib. No RVR. Previous diltiazem drip was discontinued around 15 30. She did have her oral metoprolol this morning. No IV metoprolol bumps. INR 3.[address] head and CT chest have been ordered. Suspect choking episode in setting of acutely worsening dysphagia. Is scheduled for barium swallow tomorrow. Had been cleared by speech this morning to resume diet. Will be NPO. Issa Womack MD, from the ED present. Date Seen: 11/08/25 Disposition: other (remains CCU status locally given poor road conditions. Will consider transfer if deteriorates.) Family notified: Yes
--- NOTE | 2025-11-08 20:18 | PC.NURSE ---
End of shift-- Pleasant and cooperative pt. Alert and oriented, but forgetful through most of the day. Pt tachycardic this morning on a diltiazem drip until 153. Other VS WNL until 1819. Afebrile. SPO2 maintained >88% on RA. She denied any pain until this evening when she c/o abdominal pain which she rated 5/10. Fine crackles auscultated in posterior right base this morning, otherwise CTA. She denied nausea until this evening. Pt had a swallow study this morning and ate a regular diet for lunch without difficulty. She was up to the chair with assist of 1, belt and walker and tolerated it fair. She c/o weakness. At approximately 1819, this nurse was summoned to patient's bedside by VAL Alfaro. Pt appeared pale and gasping. Reva Stewart, charge entry specialist and Pili Huggins hospitalist at bedside. B/P 58/44, heart rate 86. Pt was reclined into trendelenberg position and attempted to wake. No productive breathing was noted and code blue was called by 1825. Rescue breathing with bag/mask commenced at 1826. Pulse was not palpable and CPR began at 1827. Epinephrine administered per MD order at 1828. Pads a
--- NOTE | 2025-11-08 20:44 | PC.NURSE ---
End of shift/Code- Pleasant and cooperative pt. Alert and oriented, but forgetful through most of the day. Pt tachycardic this morning on a diltiazem drip until 1530. Other VS WNL until 1819. Afebrile. SPO2 maintained >88% on RA. She denied any pain until this evening when she c/o abdominal pain which she rated 5/10. Telemetry shows afib with NVR-RVR with HR generally from 80s-110s. Fine crackles auscultated in posterior right base this morning, otherwise CTA. She denied nausea until this evening. Pt had a swallow study this morning and ate a regular diet for lunch without difficulty. She was up to the chair with assist of 1, belt and walker and tolerated it fair. She c/o weakness. At approximately 1820, this nurse was summoned to patient's bedside by VAL Alfaro. Pt appeared pale and gasping. erasmo Haque RN and Pili Emanuel hospitalist at bedside. B/P 58/44, heart rate 86. Pt was reclined into trendelenberg position and attempted to wake. No productive breathing was noted and code blue was called by 182. Blood glucose 133 at 182. Rescue breathing with bag/mask commenced at 182. Pulse was not palpable and CPR began at 182. Epinephrine administered per MD order at 182. Pads and Cheikh device were placed at 183. Nasal airway inserted at 183. At 183, pt began grasping and moaning and ROSC was achieved. See EMR for VS. Daughter was updated by Pili Emanuel. Report to HOLLAND Daley.
[2025-11-08] MEDS: POTASSIUM CHLORIDE 10 MEQ/100 ML PIGGYBACK 100 MEQ IVPB ×3 (21:07→23:20)
[2025-11-08 22:35] LABS: HCO3 VBG 31 mmol/L (21-28); PCO2 VBG 60 mmHG (40-50); PO2 VBG < 30.1 mmHG (25-47); pH VBG 7.320 (7.32-7.43)
[2025-11-09] VITALS (15 sets, daily range): BP systolic 90–142; BP diastolic 56–97; PULSE 77–126; RESP 16–23; TEMP 36.2–36.9; O2SAT 91–97
[2025-11-09] MEDS: POTASSIUM CHLORIDE 10 MEQ/100 ML PIGGYBACK 100 MEQ IVPB (00:28)
[2025-11-09 02:25] LABS: HCO3 VBG 31 mmol/L (21-28); PCO2 VBG 53 mmHG (40-50); PO2 VBG 33.8 mmHG (25-47); pH VBG 7.371 (7.32-7.43)
[2025-11-09 02:28] LABS: Hematocrit* 39.4 % (33.0-51.0); Hemoglobin* 12.6 gm/dL (12.0-16.0); Immature Granulocytes Abs Auto 0.10 K/uL (0.00-0.30); Immature Granulocytes Pct Auto 0.8 %; Mean Corpuscular HGB Conc 32 gm/dL (32-36); Mean Corpuscular Hemoglobin 32 pg (26-34); Mean Corpuscular Volume 99 fL (80-100); RDW Coefficient of Variation % 16.9 % (11.5-15.5); Red Blood Count* 3.99 m/uL (4.00-5.20); White Blood Count* 12.04 K/uL (4.50-11.00)
[2025-11-09 02:30] LABS: Lymphocytes Absolute Auto 0.60 K/uL (0.90-2.90); Slide Review Reflex No
[2025-11-09 02:42] LABS: Chloride* 98 mmol/L (96-114)
[2025-11-09 02:43] LABS: Albumin* 3.3 g/dL (3.3-5.0); Potassium* 4.0 mmol/L (3.6-5.1); Sodium* 140 mmol/L (135-149)
[2025-11-09 02:45] LABS: Blood Urea Nitrogen* 16 mg/dL (7-30); Creatinine* 1.0 mg/dL (0.5-1.5); Est. Creatinine Clearance* 39.20; Estimated Glomerular Filt Rate 56 ml/min
[2025-11-09 02:46] LABS: Alanine Aminotransferase* 30 U/L (4-35); Alkaline Phosphatase* 71 U/L (40-150); Anion Gap 11 mEq/L (7-15); Aspartate Amino Transferase* 48 U/L (12-35); Bilirubin Total* 1.6 mg/dL (0.1-1.5); Calcium* 7.4 mg/dL (8.4-10.6); Carbon Dioxide* 31 mmol/L (20-32); Glucose* 123 mg/dL (60-115); Total Protein* 6.0 g/dL (6.0-8.3)
[2025-11-09 02:57] LABS: INR 3.70 (0.91-1.10); Prothrombin Time 38.0 Seconds
--- NOTE | 2025-11-09 05:18 | PC.NURSE ---
Pt alert to self. Pt in bed during shift with repositioning. Pt?is NPO. Post event Pt was drowsy and out of it. As the night went?on,?Pt was?more perky and talkative. Pt?s VSS; Pt on 2 liters oxygen. Pt agreeable to CT scan. Pt slept on and off?throughout?the night.?Kayode WASSERMAN updated d/t Pt?s lack of UO overnight; no intervention.??
--- NOTE | 2025-11-09 06:12 | PC.NURSE ---
Pt noted to be reporting discomfort to ribs after CPR was required yesterday. PRN Morphine available though pt refusing this when discussed for pain control. Staff assisted pt with repositioning and encouraged pillow for offloading though pt took pillow out and yelled, Get this thing out of here and let me sleep!. Brief noted to be dry at this time though pt refuses bladder scan when educated by staff and requests for staff to let her sleep.
--- NOTE | 2025-11-09 07:00 | CRLHL7_ITS ---
For Patients: As a result of the Century Cures Act, medical imaging exams and procedure reports are released immediately into your electronic medical record. You may view this report before your referring provider. If you have questions, please contact your health care provider. INDICATION: dysphagia TECHNIQUE: Modified barium swallow. Fluoroscopic time 1 minute 41 seconds. FINDINGS/IMPRESSION: Retroversion of the epiglottis not visualized. There is a large volume of residua within the vallecula and piriform sinuses during all thicknesses of barium. Trace spontaneous aspiration occurred with all levels of barium. A small Zenker`s diverticulum is present measuring 1 cm. Anterior spurring cervical spine with cricopharyngeal bar. Penetration also occurred with all thicknesses of barium. Dictated by Jose Antonio Pearl MD @ 11/09/2025 11:12:05 AM (Electronically Signed)
--- NOTE | 2025-11-09 07:11 | P.IMPN_ITS ---
Assessment and Plan Assessment and plan (1) Aspiration into airway: Problem comment: - high risk at baseline, severe aspiration confirmed on barium study 11/09 - current recommendation is NPO with rare ice chips; patient aware but disappointed - considering home with regular diet and hospice support, needs to have family conference with our team and amanda Katz to discuss (currently scheduled 11/10 10am) - med list managed 11/09 to stop all po medications given barium study results Status: Acute (2) Pneumonia: Problem comment: - aspiration pneumonia in setting of acutely worsened dysphagia - Ceftriaxone and Azithromycin (11/08) - requiring low dose supplemental oxygen, RT following Status: Acute (3) Atrial fibrillation with rapid ventricular response: Problem comment: - home meds include metoprolol 100mg XR daily, warfarin (holding for dysphagia) - INR 2.8 (up to 3.45 on 11/08), pharmacy following, HOLDING warfarin and Lovenox given supratherapeutic INR - admitted on Diltiazem gtt, trnasitioned to Metoprolol 11/09/25 - EF 30 on TTE 11/09/25 Status: Acute (4) Dysphagia: Problem comment: - continue daily PPI, see above for [employer] studies Status: Acute (5) Erythema of skin: Problem comment: - LLE, noted 11/08, per patient this is baseline. 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 for discharge planning/placement needs Status: Acute (9) Moderate protein-calorie malnutrition: Problem comment: - as evidenced by a reported 30 pound weight loss in the past year, BMI of 19, difficulty with po intake Status: Acute (10) Hyperlipidemia: Problem comment: - on Ezetimibe as an outpatient Status: Acute Plan - per above (NPO, holding pills, care conference 11/10 at 10am) - daughter Gianna updated by phone, questions answered Subjective Date Seen: 11/09/25 Interval history: Lakhwinder was admitted to the hospital on 11/07 for a R sided PNA with concern for aspiration and a fib with RVR. Presented to the ER with acute on chronic weakness and difficulty swallowing, concern for aspiration. Diltiazem gtt initiated in ER, Ceftriaxone and Azithromycin started for PNA. Evidence of CHF exacerbation (LE edema worse than baseline, BNP >10k), started on IV Furosemide BID. Failed bedside swallow with nursing staff, [employer] evaluated on 11/08 and patient approved for regular diet with close monitoring. Overnight, she had an episode of nausea after eating and became unresponsive, lost pulses. CPR and Epi initiated, + ROSC after one round. Lakhwinder woke up just prior to intubation attempt. Ultimately decided not to transfer given weather conditions and clinical improvement. Head CT without acute findings, Chest CT c/w peribronchial thickening with R middle and lower lobe + L basilar consolidations, likely aspiration PNA/pneumonitis. Is now requiring 2-3 L of supplemental oxygen per nasal cannula, remains on ceftriaxone and azithromycin. Barium swallow obtained today; spontaneous aspiration and penetration occurred at all levels and thicknesses of barium. Speech therapy's recommendation is NPO at this time. TTE obtained today, initial impression is that of an EF around 30%, formal Cardiology read pending. Lakhwinder is very disappointed in NPO status; her hope is to go home and eat normally. She is adamantly opposed to a TCU stay (recommended by our therapy teams). We had a long discussion about risks and benefits, she is aware about her code blue that occurred last night. She would like to have a discussion with our team and her daughter Gianna to evaluate goals of care. Exam Narrative: Exam Narrative: GEN: Awake and sitting comfortably in bedside chair, wearing supplemental oxygen HEENT: EOMIs bilaterally, no scleral icterus CV: Irregularly irregular with rate 110s, no concerning murmurs R: + Bibasilar rales, no wheezing Ext: thin extremities Skin: No concerning skin lesions or rashes on exposed skin, scattered bruising Neuro: Nonfocal Psych: MCI evidence, otherwise appropriate Const: Vital Signs, click to edit/add: Vital Signs - 24 hr 11/08/25 07:15 11/08/25 07:17 11/08/25 07:30 Temperature Pulse Rate 118 H Pulse Rate [Left P ulse Oximeter] 109 H 133 H Respiratory Rate Blood Pressure [Le ft Arm] Blood Pressure [Ri ght Arm] 101/78 133/80 Pulse Oximetry Oxygen Delivery Me thod Oxygen Flow Rate 11/08/25 07:45 11/08/25 08:00 11/08/25 08:15 Temperature Pulse Rate Pulse Rate [Left P ulse Oximeter] 122 H 105 H 105 H Respiratory Rate 24 24 24 Blood Pressure [Le ft Arm] Blood Pressure [Ri ght Arm] 126/85 126/85 131/82 Pulse Oximetry 94 94 93 Oxygen Delivery Me thod Room Air Room Air Oxygen Flow Rate 0 11/08/25 08:30 11/08/25 08:45 11/08/25 09:00 Temperature Pulse Rate Pulse Rate [Left P ulse Oximeter] 91 116 H 111 H Respiratory Rate 24 24 20 Blood Pressure [Le ft Arm] Blood Pressure [Ri ght Arm] 107/85 118/86 120/84 Pulse Oximetry 93 93 93 Oxygen Delivery Me thod Room Air Room Air Room Air Oxygen Flow Rate 11/08/25 10:00 11/08/25 11:57 11/08/25 12:00 Temperature 96.8 F L Pulse Rate Pulse Rate [Left P ulse Oximeter] 104 H 103 H 102 H Respiratory Rate 20 20 20 Blood Pressure [Le ft Arm] Blood Pressure [Ri ght Arm] 121/92 H 91/76 Pulse Oximetry 91 89 Oxygen Delivery Me thod Room Air Room Air Oxygen Flow Rate 11/08/25 12:04 11/08/25 12:30 11/08/25 13:00 Temperature Pulse Rate 111 H Pulse Rate [Left P ulse Oximeter] 103 H 95 Respiratory Rate 20 Blood Pressure [Le ft Arm] Blood Pressure [Ri ght Arm] 126/80 110/67 Pulse Oximetry 91 Oxygen Delivery Me thod Room Air Room Air Oxygen Flow Rate 11/08/25 14:25 11/08/25 15:00 11/08/25 15:30 Temperature 97.2 F L Pulse Rate Pulse Rate [Left P ulse Oximeter] 100 91 91 Respiratory Rate 20 20 Blood Pressure [Le ft Arm] Blood Pressure [Ri ght Arm] 115/79 122/69 Pulse Oximetry 95 Oxygen Delivery Me thod Oxygen Flow Rate 11/08/25 16:00 11/08/25 17:31 11/08/25 18:20 Temperature 97.2 F L Pulse Rate 90 Pulse Rate [Left P ulse Oximeter] 84 86 Respiratory Rate 22 Blood Pressure [Le ft Arm] 109/76 58/44 L Blood Pressure [Ri ght Arm] Pulse Oximetry 94 Oxygen Delivery Me thod Room Air Oxygen Flow Rate 11/08/25 18:22 11/08/25 18:32 11/08/25 18:37 Temperature Pulse Rate Pulse Rate [Left P ulse Oximeter] 138 H 180 H Respiratory Rate Blood Pressure [Le ft Arm] 68/22 L 130/79 139/124 H Blood Pressure [Ri ght Arm] Pulse Oximetry Oxygen Delivery Me thod Oxygen Flow Rate 11/08/25 18:38 11/08/25 18:40 11/08/25 18:42 Temperature Pulse Rate Pulse Rate [Left P ulse Oximeter] 150 H 109 H Respiratory Rate Blood Pressure [Le ft Arm] 126/111 H 125/101 H 125/95 H Blood Pressure [Ri ght Arm] Pulse Oximetry Oxygen Delivery Me thod Oxygen Flow Rate 11/08/25 18:44 11/08/25 18:50 11/08/25 18:52 Temperature Pulse Rate Pulse Rate [Left P ulse Oximeter] 115 H Respiratory Rate Blood Pressure [Le ft Arm] 97/84 97/64 95/75 Blood Pressure [Ri ght Arm] Pulse Oximetry Oxygen Delivery Me thod Oxygen Flow Rate 11/08/25 18:54 11/08/25 18:55 11/08/25 18:57 Temperature Pulse Rate Pulse Rate [Left P ulse Oximeter] 113 H 103 H 101 H Respiratory Rate Blood Pressure [Le ft Arm] 102/71 104/93 H 99/67 Blood Pressure [Ri ght Arm] Pulse Oximetry Oxygen Delivery Me thod Oxygen Flow Rate 11/08/25 18:59 11/08/25 19:02 11/08/25 19:05 Temperature Pulse Rate Pulse Rate [Left P ulse Oximeter] 103 H 92 106 H Respiratory Rate Blood Pressure [Le ft Arm] 98/65 101/79 100/63 Blood Pressure [Ri ght Arm] Pulse Oximetry Oxygen Delivery Me thod Oxygen Flow Rate 11/08/25 19:10 11/08/25 19:30 11/08/25 20:00 Temperature 97.4 F L Pulse Rate 118 H Pulse Rate [Left P ulse Oximeter] 94 105 H Respiratory Rate 22 Blood Pressure [Le ft Arm] 102/76 Blood Pressure [Ri ght Arm] 100/81 Pulse Oximetry 93 Oxygen Delivery Me thod Nasal Cannula Oxygen Flow Rate 2 11/08/25 21:16 11/08/25 23:00 11/08/25 23:59 Temperature 97.2 F L 97.1 F L Pulse Rate 95 Pulse Rate [Left P ulse Oximeter] 87 90 Respiratory Rate 19 22 Blood Pressure [Le ft Arm] 133/84 123/77 Blood Pressure [Ri ght Arm] Pulse Oximetry 98 97 Oxygen Delivery Me thod Nasal Cannula Nasal Cannula Oxygen Flow Rate 2 2 11/09/25 00:00 11/09/25 01:00 11/09/25 03:02 Temperature 98.2 F 98.5 F Pulse Rate Pulse Rate [Left P ulse Oximeter] 90 77 96 Respiratory Rate 22 23 20 Blood Pressure [Le ft Arm] 119/77 142/84 H Blood Pressure [Ri ght Arm] Pulse Oximetry 93 95 Oxygen Delivery Me thod Nasal Cannula Nasal Cannula Oxygen Flow Rate 2 2 11/09/25 04:06 11/09/25 04:06 11/09/25 05:00 Temperature 98.2 F Pulse Rate 91 Pulse Rate [Left P ulse Oximeter] 96 107 H Respiratory Rate 20 22 Blood Pressure [Le ft Arm] 137/93 H Blood Pressure [Ri ght Arm] Pulse Oximetry 91 Oxygen Delivery Me thod Nasal Cannula Oxygen Flow Rate 2 Labs Labs: Laboratory Results - last 24 hr 11/08/25 11/08/25 11/08/25 05:46 11:13 14:51 WBC RBC Hgb Hct MCV MCH MCHC RDW Coeff of Camilla Plt Count Neut % (Auto) Lymph % (Auto) Bledsoe % (Auto) Eos % (Auto) Baso % (Auto) Neut # (Auto) Lymph # (Auto) Bledsoe # (Auto) Eos # (Auto) Baso # (Auto) Abs Immat Gran (auto) Imm/Tot Granulo (auto) INR VBG pH VBG pCO2 VBG pO2 VBG HCO3 Sodium Potassium 3.0 L Chloride Carbon Dioxide Anion Gap BUN Creatinine Estimated Creat Clear Estimated GFR Glucose Calcium Total Bilirubin AST ALT Alkaline Phosphatase Troponin I C-Reactive Protein Total Protein Albumin TSH 1.520 Lab Acknowledgement Test Added 11/08/25 11/08/25 11/09/25 18:50 22:30 02:20 WBC 9.14 12.04 H RBC 4.64 3.99 L Hgb 14.6 12.6 Hct 46.3 39.4 MCV 100 99 MCH 32 32 MCHC 32 32 RDW Coeff of Camilla 17.0 H 16.9 H Plt Count 176 238 Neut % (Auto) 60.9 88.3 H Lymph % (Auto) 26.1 4.7 L Bledsoe % (Auto) 9.1 6.0 Eos % (Auto) 2.5 0.1 Baso % (Auto) 0.3 0.1 Neut # (Auto) 5.56 10.60 H Lymph # (Auto) 2.39 0.60 L Bledsoe # (Auto) 0.80 0.70 Eos # (Auto) 0.23 0.00 Baso # (Auto) 0.03 0.00 Abs Immat Gran (auto) 0.10 0.10 Imm/Tot Granulo (auto) 1.1 0.8 INR 3.70 H VBG pH 7.320 7.371 VBG pCO2 60 H 53 H VBG pO2 < 30.1 33.8 VBG HCO3 31 H 31 H Sodium 143 140 Potassium 3.0 L 4.0 Chloride 97 98 Carbon Dioxide 25 31 Anion Gap 21 H 11 BUN 14 16 Creatinine 1.0 1.0 Estimated Creat Clear 36.70 39.20 Estimated GFR 56 56 Glucose 147 H 123 H Calcium 7.6 L 7.4 L Total Bilirubin 1.7 H 1.6 H AST 37 H 48 H ALT 30 30 Alkaline Phosphatase 67 71 Troponin I < 0.01 C-Reactive Protein 3.2 H Total Protein 6.5 6.0 Albumin 3.8 3.3 TSH Lab Acknowledgement
[2025-11-09] MEDS: cefTRIAXone 1 GM in 0.9 % SODIUM CHLORIDE Mini-bag 100 ML IVPB (09:11)
[2025-11-09] MEDS: ACETAMINOPHEN INJ 1,000 MG/100 ML VIAL 400 MG IVPB (09:11)
[2025-11-09] MEDS: PANTOPRAZOLE SODIUM 40 MG INJ IVP (09:14)
[2025-11-09] MEDS: SODIUM CHLORIDE 0.9 % (FLUSH) 10 ML SYRINGE 5 ML IVF ×3 (09:15→21:03)
[2025-11-09] MEDS: METOPROLOL TARTRATE 1 MG/ML inj 5 MG IVP ×3 (09:15→21:02)
--- NOTE | 2025-11-09 10:42 | RESP.RT ---
Patient up in chair on NC 2 Lpm, SaO2 93%, with Oxygen off momentarily SaO2 decreases to upper 80's. Patient has good clear voice, less than two seconds capillary refill. BBS with very fine crackles, clears with cough, slight end expiratory grunt noted. PEP with Aerobika with patient, fair/good exhalation with fair/good chest shake. Patient will need re-enforcement to use Aerobika, but after instruction understands it's. RT and Nurse will encourage patient to use Aerobika.
--- NOTE | 2025-11-09 14:51 | PC.NURSE ---
End of shift-- Pt pleasant and cooperative. Alert and oriented, but forgetful. VSS, though still tachycardic at times, and pt is afebrile. SPO2 maintained >90% on 2L per n.c. Telemetry shows afib with RVR (at times NVR). She c/o pain in her sternum today r/t CPR yesterday. Given IV Tylenol, but denied relief. Crackles auscultated in posterior right bases this morning. LS otherwise clear but diminished. No coughing noted today. She has had nothing by mouth today despite her protests. She denied any nausea. Pt was up to the chair with assist of 1 and walker and tolerated it well. Coccyx was noted to be reddened and a Mepilex dressing was applied. No open area noted. Report to HOLLAND Bower.
--- NOTE | 2025-11-09 15:23 | PC.SOCIAL ---
Discharge planning: Provider met with the pt today to discuss goals of care. A family conference is scheduled for tomorrow morning at 10am with pt's daughter present. Social work to follow-up as needed.
[2025-11-09] MEDS: AZITHROMYCIN 500 MG in 0.9 % SODIUM CHLORIDE 250 ml 250 ML 255 MG IVPB (18:30)
--- NOTE | 2025-11-09 18:53 | PC.NURSE ---
End of shift: patient VSS, on RA, NPO. RN to supervise when having ice chips. Patient agitated about not being able to eat.
[2025-11-09] MEDS: PROCHLORPERAZINE 5 MG/ML VIAL IV (19:40)
[2025-11-10] MEDS: METOPROLOL TARTRATE 1 MG/ML inj 5 MG IVP ×7 (00:42→19:28)
[2025-11-10 03:14] VITALS: BP 125/79; PULSE 104; RESP 16; TEMP 36.8; O2SAT 96
[2025-11-10] MEDS: SODIUM CHLORIDE 0.9 % (FLUSH) 10 ML SYRINGE 5 ML IVF ×5 (03:18→19:28)
[2025-11-10 06:17] LABS: Hematocrit* 38.9 % (33.0-51.0); Hemoglobin* 12.3 gm/dL (12.0-16.0); Immature Granulocytes Abs Auto 0.01 K/uL (0.00-0.30); Immature Granulocytes Pct Auto 0.1 %; Mean Corpuscular HGB Conc 32 gm/dL (32-36); Mean Corpuscular Hemoglobin 31 pg (26-34); Mean Corpuscular Volume 99 fL (80-100); RDW Coefficient of Variation % 16.9 % (11.5-15.5); Red Blood Count* 3.94 m/uL (4.00-5.20); White Blood Count* 6.79 K/uL (4.50-11.00)
[2025-11-10 06:23] LABS: Lymphocytes Absolute Auto 1.00 K/uL (0.90-2.90); Slide Review Reflex No
[2025-11-10 06:29] LABS: Albumin* 3.1 g/dL (3.3-5.0); Chloride* 105 mmol/L (96-114); Potassium* 3.6 mmol/L (3.6-5.1); Sodium* 142 mmol/L (135-149)
[2025-11-10 06:32] LABS: Alanine Aminotransferase* 24 U/L (4-35); Alkaline Phosphatase* 63 U/L (40-150); Anion Gap 5 mEq/L (7-15); Aspartate Amino Transferase* 34 U/L (12-35); Bilirubin Total* 1.0 mg/dL (0.1-1.5); Blood Urea Nitrogen* 16 mg/dL (7-30); Calcium* 7.7 mg/dL (8.4-10.6); Carbon Dioxide* 32 mmol/L (20-32); Creatinine* 1.1 mg/dL (0.5-1.5); Est. Creatinine Clearance* 35.64; Estimated Glomerular Filt Rate 50 ml/min; Glucose* 83 mg/dL (60-115); INR 3.92 (0.91-1.10); Prothrombin Time 39.7 Seconds; Total Protein* 5.6 g/dL (6.0-8.3)
[2025-11-10 07:00] VITALS: BP 145/81; PULSE 124; RESP 16; TEMP 36.8; O2SAT 93
--- NOTE | 2025-11-10 07:31 | PC.NURSE ---
End of shift: Pt pleasant,?alert?and oriented?to self.?VSS.?On 1.5 L o2 for sats in the high 90s.?IV infiltrated in RAC, replaced in R forearm.?Tele reads a fib with?nvr,?though?was?rvr?at times.?RN supervised pt eating ice chips, tolerated well. Pt incontinent.?Pt in bed, appears to be resting, call light within reach.???
[2025-11-10] MEDS: PANTOPRAZOLE SODIUM 40 MG INJ IVP (08:54)
[2025-11-10] MEDS: FUROSEMIDE 10 MG/ML inj 20 MG IVP (08:54)
[2025-11-10] MEDS: cefTRIAXone 1 GM in 0.9 % SODIUM CHLORIDE Mini-bag 100 ML IVPB (08:54)
--- NOTE | 2025-11-10 09:43 | PM.DST ---
Transfer Discharge Sum: Prov Provider Date Seen: 11/10/25 Date of admission: 11/07/25 17:10 Primary care physician: Dr. Idalia Petersen, [facility] Admitting clinician: Pili Emanuel Consults: OT, PT, SPOT WASHER, SW Attending physician on discharge: Eugenia Earl Anticipated date of transfer: 11/10/25 Receiving physician/facility: [facility] DS: Diagnosis Discharge Diagnosis (1) Aspiration into airway: Status: Acute Problem details: - high risk at baseline, severe aspiration confirmed on barium study 11/09 - v fib arrest after an episode of nausea following po intake 11/08 pm - current recommendation is NPO with rare ice chips; patient aware but disappointed (barium results below) - GI consulted 11/10/25 to discuss EGD for anatomy evaluation and possible dilation, accepted 11/10/25 TECHNIQUE: Modified barium swallow. Fluoroscopic time 1 minute 41 seconds. FINDINGS/IMPRESSION: Retroversion of the epiglottis not visualized. There is a large volume of residua within the vallecula and piriform sinuses during all thicknesses of barium. Trace spontaneous aspiration occurred with all levels of barium. A small Zenker`s diverticulum is present measuring 1 cm. Anterior spurring cervical spine with cricopharyngeal bar. Penetration also occurred with all thicknesses of barium. (2) Ventricular fibrillation: Status: Acute Problem details: - VFib arrest after eating 12/9 pm (noted some nausea, then had loss of consciousness with VFib on telemetry) - received 3 rounds of CPR, 1 dose of epinephrine, woke up and refused intubation or transfer - made NPO after this event - post arrest Head CT negative, Chest CT: FINDINGS: Heart and vasculature: No sign of central pulmonary embolism. Evaluation of the segmental and subsegmental branches is limited secondary to motion artifact. Cardiomegaly. Thoracic aorta and pulmonary artery are normal in caliber. Lungs and pleura: Peribronchial thickening with right middle/lower lobe, and left basilar consolidations. Moderate right and trace left pleural effusions. No pneumothorax. Lymph nodes/mediastinum: No mediastinal, hilar, or axillary adenopathy. Chest wall: No masses. Upper abdomen: No acute or significant findings. Bones: Unremarkable for age. IMPRESSION: Peribronchial thickening with right middle/lower lobe and left basilar consolidations, likely aspiration pneumonitis/pneumonia. Moderate right and trace left pleural effusions. No central pulmonary embolism. Evaluation of the segmental and subsegmental branches is limited secondary to motion artifact. Otherwise, no acute intrathoracic abnormality. (3) Pneumonia: Status: Acute Problem details: - aspiration pneumonia in setting of acutely worsened dysphagia - Ceftriaxone and Azithromycin (11/08) - requiring low dose supplemental oxygen since 11/08/25 (1-2L per NC), RT following (4) Atrial fibrillation with rapid ventricular response: Status: Acute Problem details: - home meds include metoprolol 100mg XR daily, warfarin (holding for dysphagia) - supratherapeutic INR, pharmacy following, HOLDING Warfarin since admission, given 5mg of IV Vitamin K 11/10/25 - admitted on Diltiazem gtt, transitioned to scheduled IV Metoprolol 11/09/25 given HFrEF, current heart rate of 90-100 - TTE 11/09/25: Final Impressions: 1. A-fib with RVR throughout the study. 2. Normal LV size, normal wall thickness, moderately reduced global systolic function with an estimated EF of 30 - 35%. There is moderate global left ventricular hypokinesis. 3. Right ventricular cavity size is mildly enlarged, global systolic RV function is mildly reduced. 4. Moderately enlarged left atrium. 5. The aortic valve is trileaflet and sclerotic, no stenosis and mild to moderate regurgitation. 6. Moderate mitral regurgitation. 7. Moderate tricuspid regurgitation. 8. IVC morphology suggests elevated RA pressure. 9. Dilated ascending aorta, diameter of 4.1 cm. (5) Dysphagia: Status: Acute Problem details: - continue daily PPI, see above for SPOT WASHER studies (6) Elevated LFTs: Status: Acute Problem details: - bilirubin 3.6 -> 2.7 -> 1.0 - AST 37 -> 48 -> 34 - unclear baseline, no RUQ pain - no concerning ETOH use, possibly congestive hepatopathy given reduced RV systolic function on TTE (7) Fall: Status: Acute Problem details: -reported outside of ED on 11/07 -right knee x-ray without acute injury -monitor for new or worsening symptoms -PT/OT (8) Weakness: Status: Acute Problem details: -generalized, unknown if acute on chronic -PT/OT consults -social work supervisor for discharge planning/placement needs (9) Moderate protein-calorie malnutrition: Status: Acute Problem details: - as evidenced by a reported 30 pound weight loss in the past year, BMI of 19, difficulty with po intake (10) Hyperlipidemia: Status: Acute Problem details: - on Ezetimibe as an outpatient (11) HFrEF (heart failure with reduced ejection fraction): Status: Acute Problem details: - unclear chronicity - on IV Metoprolol and IV Lasix (unable to titrate GDMT given NPO status) Final Impressions: 1. A-fib with RVR throughout the study. 2. Normal LV size, normal wall thickness, moderately reduced global systolic function with an estimated EF of 30 - 35%. There is moderate global left ventricular hypokinesis. 3. Right ventricular cavity size is mildly enlarged, global systolic RV function is mildly reduced. 4. Moderately enlarged left atrium. 5. The aortic valve is trileaflet and sclerotic, no stenosis and mild to moderate regurgitation. 6. Moderate mitral regurgitation. 7. Moderate tricuspid regurgitation. 8. IVC morphology suggests elevated RA pressure. 9. Dilated ascending aorta, diameter of 4.1 cm. (12) Warfarin anticoagulation: Status: Acute Problem details: - HELD since admission 11/07 - INR supratherapeutic (3+), receiving Vitamin K 11/10 prior to transfer Transfer Discharge Sum: Med Medications Active and Home Medications: Home Medications cholecalciferol (vitamin D3) 50 mcg (2,000 unit) capsule 50 mcg PO DAILY 11/07/25 [History Confirmed 11/07/25] cyanocobalamin (vitamin B-12) 1,000 mcg tablet 1,000 mcg PO DAILY 11/07/25 [History Confirmed 11/07/25] ezetimibe 10 mg tablet 10 mg PO DAILY 11/07/25 [History Confirmed 11/07/25] hydrochlorothiazide 25 mg tablet 25 mg PO DAILY PRN 11/07/25 [History Confirmed 11/07/25] metoprolol succinate 100 mg tablet,extended release 24 hr (Toprol XL) 100 mg PO DAILY 11/07/25 [History Confirmed 11/07/25] omeprazole 20 mg capsule,delayed release 20 mg PO DAILY 11/07/25 [History Confirmed 11/07/25] warfarin 1 mg tablet 1 mg PO QPM 11/07/25 [History Confirmed 11/07/25] Active Medications Bisacodyl (Bisacodyl 10 Mg Supp.Rect) 10 mg SC DAILY PRN Furosemide (Furosemide 10 Mg/Ml Inj) 20 mg IVP DAILY [facility] Last Admin: 11/10/25 08:54 Dose: 20 mg Ceftriaxone Sodium 1 gm/ (Sodium Chloride) 100 mls @ 200 mls/hr IVPB Q24H [facility] Last Infusion: 11/10/25 09:37 Dose: Infused Azithromycin 500 mg/ Sodium (Chloride) 255 mls @ 255 mls/hr IVPB Q24H [facility] Last Infusion: 11/09/25 20:33 Dose: Infused Acetaminophen (Acetaminophen Inj) 1,000 mg in 100 mls @ 400 mls/hr IVPB Q6H PRN Last Infusion: 11/09/25 10:25 Dose: Infused Phytonadione 5 mg/ Sodium (Chloride) 50.5 mls @ 100 mls/hr IVPB ONCE ONE Stop: 11/10/25 10:12 Metoprolol Tartrate (Metoprolol Tartrate 1 Mg/Ml Inj) 5 mg IVP Q3H [facility] Last Admin: 11/10/25 08:55 Dose: 5 mg Morphine Sulfate (Morphine 2 Mg/Ml Inj) 2 mg IVP Q3H PRN Pantoprazole Sodium (Pantoprazole Sodium 40 Mg Inj) 40 mg IVP DAILY [facility] Last Admin: 11/10/25 08:54 Dose: 40 mg Prochlorperazine (Prochlorperazine 5 Mg/Ml Vial) 5 mg IV Q6H PRN Last Admin: 11/09/25 19:40 Dose: 5 mg Sodium Chloride (Sodium Chloride 0.9 % (Flush) 10 Ml Syringe) 5 ml IVF .FLUSH PRN Last Admin: 11/10/25 03:18 Dose: 5 ml Sodium Chloride (Sodium Chloride 0.9 % (Flush) 10 Ml Syringe) 5 ml IVF BID [facility] Last Admin: 11/10/25 08:55 Dose: 5 ml Transfer Discharge Sum: Hosp Hospital Course Hospital course: Lakhwinder Oscar is a 85 year old female who was admitted to the hospital on 11/07/25 for right-sided pneumonia, suspected aspiration given history of dysphagia. She recently moved to [place] from [place] to be closer to [facility] ([phone]). Comorbidities include atrial fibrillation (anticoagulated on Coumadin, on metoprolol in the outpatient setting), mild cognitive impairment, moderate protein calorie malnutrition as evidenced by recent weight loss. Azithromycin and ceftriaxone initiated for pneumonia, was in RVR upon admission and placed on diltiazem drip for rate control. During stay: - 12 pm: After supper, + episode of nausea followed by pulselessness and VFib rhythm on telemetry. 3 rounds of CPR and 1 dose IV epi, +ROSC. Did not require intubation. [facility] consulted, patient ultimately kept here given post-arrest stability and weather conditions. Made strict NPO at that time, f/u head CT and Chest CT stable. - 11/09: Barium swallow concerning for spontaneous aspiration and penetration at all levels and thicknesses of barium - 11/09: TTE obtained with EF of 30-35%, transition from diltiazem drip to scheduled IV metoprolol, also on IV Lasix Qday - 11/10: Patient and daughter would like further workup with goal to eventually take po; not interested in comfort focused measures at this time. Discussed case with GI at [facility] who accepts in transfer Upon transfer, patient is receiving: - IV Ceftriaxone and Azithromycin - IV Metoprolol (5mg Q3H) with HR 90-100 - IV PPI daily - IV Lasix 20mg daily - One dose of 5mg IV Vitamin K for INR of 3.92 Current labs 11/10: - WBC of 6.7, Hgb 12.3, platelets 226 - Na 126, K 3.6 Creatinine 1.1, Ca 7.7 She is being discharged to [facility] on 11/10/25 for GI consultation, considering of EGD for evaluation/management of dysphagia with complications of a fib/RVR and HFrEF (presumably new diagnosis). Time Spent with Patient Time attestation: Total time spent providing and/or coordinating transfer services: Total time spent: Greater than 30 minutes Exam Narrative: Exam Narrative: GEN: Alert and sitting comfortably in bed, breathing comfortably HEENT: EOMIs bilaterally, no scleral icterus CV: Irregularly irregular, rate 100s R: No tachypnea, fine crackles R base, no wheezing Ext: 1+ BLE edema, improved from admission Skin: No concerning skin lesions or rashes on exposed skin Neuro: No focal deficits Psych: Appears to have mild congnitive impairment, but able to verbalize risk and benefits of NPO status, GI evaluation, transfer Const: Vital Signs, click to edit/add: Vital Signs - 24 hr 11/09/25 10:40 11/09/25 11:22 11/09/25 15:00 Temperature 97.4 F L Pulse Rate Pulse Rate [Left P ulse Oximeter] 118 H 104 H Respiratory Rate 20 18 18 Blood Pressure [Le ft Arm] 112/83 Blood Pressure [Ri ght Arm] Pulse Oximetry 93 93 Oxygen Delivery Me thod Nasal Cannula Nasal Cannula Oxygen Flow Rate 2 2 11/09/25 15:00 11/09/25 15:00 11/09/25 19:43 Temperature 97.7 F 97.2 F L Pulse Rate 104 H Pulse Rate [Left P ulse Oximeter] 104 H 113 H Respiratory Rate 18 16 Blood Pressure [Le ft Arm] 137/70 90/56 L Blood Pressure [Ri ght Arm] Pulse Oximetry 97 95 Oxygen Delivery Me thod Nasal Cannula Nasal Cannula Oxygen Flow Rate 2 2 11/09/25 20:34 11/09/25 21:01 11/09/25 23:00 Temperature Pulse Rate 99 Pulse Rate [Left P ulse Oximeter] Respiratory Rate Blood Pressure [Le ft Arm] 108/78 Blood Pressure [Ri ght Arm] 108/87 Pulse Oximetry Oxygen Delivery Me thod Oxygen Flow Rate 11/09/25 23:00 11/09/25 23:30 11/10/25 03:14 Temperature 97.6 F 98.3 F Pulse Rate Pulse Rate [Left P ulse Oximeter] 104 H 104 H 104 H Respiratory Rate 16 16 16 Blood Pressure [Le ft Arm] Blood Pressure [Ri ght Arm] 101/75 125/79 Pulse Oximetry 95 96 Oxygen Delivery Me thod Nasal Cannula Nasal Cannula Oxygen Flow Rate 2 2 11/10/25 07:00 11/10/25 07:00 Temperature 98.3 F Pulse Rate Pulse Rate [Left P ulse Oximeter] 124 H 124 H Respiratory Rate 16 16 Blood Pressure [Le ft Arm] 145/81 H Blood Pressure [Ri ght Arm] Pulse Oximetry 93 Oxygen Delivery Me thod Room Air Oxygen Flow Rate Transfer Discharge Sum: Data Data Completed and Pending Completed studies during hospitalization: FINDINGS: Heart and vasculature: No sign of central pulmonary embolism. Evaluation of the segmental and subsegmental branches is limited secondary to motion artifact. Cardiomegaly. Thoracic aorta and pulmonary artery are normal in caliber. Lungs and pleura: Peribronchial thickening with right middle/lower lobe, and left basilar consolidations. Moderate right and trace left pleural effusions. No pneumothorax. Lymph nodes/mediastinum: No mediastinal, hilar, or axillary adenopathy. Chest wall: No masses. Upper abdomen: No acute or significant findings. Bones: Unremarkable for age. IMPRESSION: Peribronchial thickening with right middle/lower lobe and left basilar consolidations, likely aspiration pneumonitis/pneumonia. Moderate right and trace left pleural effusions. No central pulmonary embolism. Evaluation of the segmental and subsegmental branches is limited secondary to motion artifact. Otherwise, no acute intrathoracic abnormality. Please note that all CT scans at this facility use dose modulation, iterative reconstruction, and/or weight-based dosing when appropriate to reduce radiation dose to as low as reasonably achievable. Dictated by Chidi Collier MD @ 11/08/2025 9:18:57 PM INDICATION: Altered mental status. Unresponsive post code. TECHNIQUE: CT head without contrast. COMPARISON: None. FINDINGS: CSF spaces: Moderate diffuse parenchymal volume loss Brain parenchyma and extra-axial spaces: Moderate chronic white matter ischemic disease. The travis-white differentiation is normal. No sign of mass, hemorrhage, or midline shift. No extra-axial fluid collection. Skull base and calvarium: The visualized paranasal sinuses and mastoid air cells demonstrate no acute or significant findings. The visualized orbits are grossly unremarkable. No skull fractures. IMPRESSION: No acute intracranial abnormality on this noncontrast study. Please note that all CT scans at this facility use dose modulation, iterative reconstruction, and/or weight-based dosing when appropriate to reduce radiation dose to as low as reasonably achievable. INDICATION: dysphagia TECHNIQUE: Modified barium swallow. Fluoroscopic time 1 minute 41 seconds. FINDINGS/IMPRESSION: Retroversion of the epiglottis not visualized. There is a large volume of residua within the vallecula and piriform sinuses during all thicknesses of barium. Trace spontaneous aspiration occurred with all levels of barium. A small Zenker`s diverticulum is present measuring 1 cm. Anterior spurring cervical spine with cricopharyngeal bar. Penetration also occurred with all thicknesses of barium. Dictated by Jose Antonio Pearl MD @ 11/09/2025 11:12:05 AM Transfer Discharge Sum: A/P Plan Overall status at transfer: patient is progressing back to baseline Discharge Plan Discharge Disposition: [facility] Date of Admission: 11/07/25 17:10 Attending Provider on Discharge: Eugenia Earl Primary Care Provider: Provider,Not a Local Discharge Orders: Transfer of Care to Other Hospital (ORDER); Ordered 11/10/25 Ordered By: Eugenia Earl Oxygen: Yes Oxygen Delivery Method: Nasal Cannula Oxygen Flow Rate: 1-2 Urinary Catheter: No Services not available here: GI
[2025-11-10] MEDS: PHYTONADIONE (VIT K1) 5 MG in 0.9 % SODIUM CHLORIDE 50 ml 50 ML 101 MG IVPB (10:18)
--- NOTE | 2025-11-10 10:34 | PC.SOCIAL ---
Addendum entered by QUYEN Hirsch 11/10/25 11:33: Discharge planning: cathead worker assisted the pt and her daughter with completing the [place] application. Pt's daughter plans to submit it to [facility] when she has all the needed proofs. Social work to follow-up as needed. Original Note: Discharge planning: cathead worker met with pt and her daughter and provided support while pt's daughter completed the POA document. This child welfare social worker's co-worker will assist with notarizing the document as this worker is not an authorized notary. cathead worker also provided the pt's daughter with a copy of the [place] application, as pt's daughter stated they are interested in getting services in place for the pt in her home after the hospital or eventually to help pay for an Assisted Living Facility if needed. Pt does not want to go to a chcf. The plan for the pt today will be to transfer to [facility] later today when they have a bed available. Social work to follow-up as needed.
[2025-11-10 11:00] VITALS: BP 141/108; PULSE 131; RESP 16; TEMP 36.8; O2SAT 95
[2025-11-10 15:00] VITALS: BP 128/106; PULSE 123; RESP 16; TEMP 36.8; O2SAT 98
[2025-11-10] MEDS: AZITHROMYCIN 500 MG in 0.9 % SODIUM CHLORIDE 250 ml 250 ML 255 MG IVPB (18:52)
--- NOTE | 2025-11-10 19:05 | PC.NURSE ---
End of shift: patients VSS, awaiting transfer to [facility] for procedure. Dtr. updated about room and plan.
[2025-11-10 19:26] VITALS: BP 132/97; PULSE 136; RESP 16; TEMP 36.4; O2SAT 97
== END 2025-11-10 20:18 | disposition short-term general hospital (02) | DRG 177 ==
LOC: ED 16:41 → MEDSURG 17:14
PROVIDERS: Family Medicine; Physician Assistant; Admitting Provider Family Medicine; Emergency Provider Family Medicine; Visit Provider Family Medicine
DX: J69.0 Pneumonitis due to inhalation of food and vomit (principal); I49.01 Ventricular fibrillation; I50.21 Acute systolic (congestive) heart failure; Z68.1 Body mass index [BMI] 19.9 or less, adult; E44.0 Moderate protein-calorie malnutrition; R13.10 Dysphagia, unspecified; I48.91 Unspecified atrial fibrillation; R60.9 Edema, unspecified; R53.1 Weakness; M25.561 Pain in right knee; K21.9 Gastro-esophageal reflux disease without esophagitis; L53.8 Other specified erythematous conditions; I95.9 Hypotension, unspecified; R79.89 Other specified abnormal findings of blood chemistry; K22.5 Diverticulum of esophagus, acquired; B37.9 Candidiasis, unspecified; Z87.891 Personal history of nicotine dependence; Z79.899 Other long term (current) drug therapy; Z79.01 Long term (current) use of anticoagulants; W18.39XA Other fall on same level, initial encounter; Y92.481 Parking lot as the place of occurrence of the external cause; E78.5 Hyperlipidemia, unspecified
CPT/HCPCS: 36415; 70450; 71045; 71260; 73560; 74230; 80048; 80053; 80076; 81001; 82803; 82962; 83605; 83735; 83880; 84132; 84145; 84443; 84484; 85025; 85027; 85610; 86140; 87086; 87631; 92610; 92611; 93005; 93306; 93970; 94664; 94761; 97161; 97165; 97535; 99285; 99291; A9270; J0131; J0169; J0456; J0696; J0780; J1650; J1938; J2405; J2470; J3430; J3475; J3480; J3490; J7030; J7050; Q9967

== ENCOUNTER 2025-11-10 19:58 | Outpatient (CLI) | payer MEDICARE, SELFPAY | END 2025-11-10 19:59 | disposition home or self-care (01) | LOC: AMB 11-14 16:40 | PROVIDERS: Visit Provider Family Medicine | DX: J18.9 Pneumonia, unspecified organism (principal); R13.10 Dysphagia, unspecified | CPT/HCPCS: A0425; A0427 ==